=== PATIENT | male | born 1935 | race African-American/Black ===

== ENCOUNTER 2018-03-14 12:25 | Inpatient (IN) | payer MEDICARE, OTHER, MEDICAID ==
[~2018-03-14] VITALS: Ht 180.3 cm; Wt 108.9 kg
[~2018-03-14 12:25] MED LIST: AMLO2.5T45 PO; ASPI-986 PO; ATOR20TA PO; CARV12.545 PO; CLIN300C11 PO; CLOP75TA16 PO; COLC0.6T66 PO; FURO40TA5 PO; GLIM4TAB2 PO; LEVVL SQ; LOSA100T14 PO; OMEP20TA2 PO; SUCR1TAB30 PO
[2018-03-14] MEDS ORDERED: SODIUM CHLORIDE 0.9% 1,000 ML IV ONE (13:42)
[2018-03-14] MEDS ORDERED: ONDANSETRON HCL 4MG/2ML INJ IV STA (13:42)
[2018-03-14 14:56] LABS: CHLORIDE 98 mEq/L (98-107); HEMATOCRIT. 42.1 % (42.0-52.0); HEMOGLOBIN. 14.1 g/dL (14.0-18.0); MEAN CORPUSCULAR HEMOGLOBIN 31.6 pg (28.0-32.0); MEAN CORPUSCULAR VOLUME 94.5 fL (80.0-94.0); MEAN PLATELET VOLUME 9.9 fl (7.4-10.4); PLATELET 141 x1000/uL (130-400); RED BLOOD CELL COUNT 4.46 mill/uL (4.7-6.1); RED CELL DISTRIBUTION WIDTH 14.4 % (11.6-14.6)
[2018-03-14 14:59] LABS: INR 1.2; PARTIAL THROMBOPLASTIN TIME 28.3 sec (23.4-31.0); PROTHROMBIN TIME 12.2 sec (9.1-11.1)
[2018-03-14 15:12] LABS: CLARITY URINE CLEAR (CLEAR); COLOR URINE YELLOW (YELLOW); KETONES URINE 3+ (NEGATIVE); LEUKOCYTE ESTERASE URINE NEGATIVE (NEGATIVE); NITRITE URINE NEGATIVE (NEGATIVE); OCCULT BLOOD URINE NEGATIVE (NEGATIVE); PH URINE >=9.0 (4.5-8.0); PROTEIN URINE 2+ (NEGATIVE); SPECIFIC GRAVITY URINE 1.016 (1.005-1.030)
[2018-03-14 15:35] LABS: PLATELET ESTIMATE NORMAL
[2018-03-14] MEDS ORDERED: ONDANSETRON HCL 4MG/2ML INJ IV SCH (16:30)
[2018-03-14] MEDS ORDERED: LORAZEPAM 2MG/ML CPJ IV SCH (16:30)
[2018-03-14] MEDS ORDERED: METOCLOPRAMIDE HCL 10MG/2ML VIAL IV SCH (16:30)
[2018-03-14] MEDS ORDERED: ACETAMINOPHEN 650MG SUPP PR PRN (19:00)
[2018-03-14] MEDS ORDERED: HYDROMORPHONE HCL/PF 2MG/ML CPJ IV PRN (19:00)
[2018-03-14] MEDS ORDERED: ONDANSETRON HCL 4MG/2ML INJ IV PRN (19:00)
[2018-03-14] MEDS ORDERED: PANTOPRAZOLE 80 MG in SODIUM CHLORIDE 0.9% 100 ML IV SCH (19:00)
[2018-03-14] MEDS ORDERED: OCTREOTIDE 1,000 MCG in SODIUM CHLORIDE 0.9% 100 ML IV SCH ×2 (19:00→20:30)
[2018-03-14] MEDS: PANTOPRAZOLE 80 MG in SODIUM CHLORIDE 0.9% 100 ML IV SCH (21:06)
[2018-03-14] MEDS: DEXT 5%/0.45% NACL 1000ML 1,000 ML IV SCH (22:00)
[2018-03-15] MEDS ORDERED: DEXTROSE 50% WATER 50ML SYRINGE IV PRN (02:30)
[2018-03-15] MEDS ORDERED: INSULIN LISPRO 100 UNITS/ML SUBCUT NR (03:30)
[2018-03-15 06:48] LABS: BASOPHILS % 0.4 % (0.0-2.0); HEMATOCRIT. 39.2 % (42.0-52.0); HEMOGLOBIN. 13.1 g/dL (14.0-18.0); LYMPHOCYTES % 12.3 % (20.0-50.0); MEAN CORPUSCULAR HEMOGLOBIN 31.6 pg (28.0-32.0); MEAN CORPUSCULAR VOLUME 94.6 fL (80.0-94.0); MONOCYTES % 13.3 % (2.0-8.0); PLATELET 125 x1000/uL (130-400); RED BLOOD CELL COUNT 4.14 mill/uL (4.7-6.1); RED CELL DISTRIBUTION WIDTH 14.8 % (11.6-14.6)
[2018-03-15 06:59] LABS: CHLORIDE 102 mEq/L (98-107)
[2018-03-15] MEDS ORDERED: HYDRALAZINE 20MG/ML VIAL IV ONE (08:15)
[2018-03-15] MEDS ORDERED: INSULIN LISPRO 100 UNITS/ML SUBCUT SCH (08:20)
[2018-03-15] MEDS: PANTOPRAZOLE 80 MG in SODIUM CHLORIDE 0.9% 100 ML IV SCH (09:00)
[2018-03-15 09:50] VITALS: BP 184/96
[2018-03-15] MEDS: BLOOD SUGAR DIAGNOSTIC STRIP TEST SCH ×3 (12:30→20:51)
[2018-03-15] MEDS ORDERED: HYDRALAZINE 20MG/ML VIAL IV NR (13:15)
[2018-03-15] MEDS: DEXT 5%/0.45% NACL 1000ML 1,000 ML IV SCH (13:45)
[2018-03-15] MEDS: INSULIN LISPRO 100 UNITS/ML SUBCUT SCH ×2 (18:48→21:52)
[2018-03-15] MEDS: METOCLOPRAMIDE HCL 10MG/2ML VIAL IV SCH (18:53)
[2018-03-15] MEDS: GUAIFENESIN 200MG/10ML SUGAR FREE UDC PO PRN ×2 (18:54→23:20)
[2018-03-15 20:00] VITALS: BP 174/86
[2018-03-15] MEDS: METOPROLOL TARTRATE 25MG TABLET PO SCH (20:51)
[2018-03-15] MEDS ORDERED: VANCOMYCIN 1500MG in DEXTROSE 5% WATER 250ML IV NR (21:00)
[2018-03-15] MEDS: NITROGLYCERIN OINT 1GM/INCH UDPKT TD SCH (21:50)
[2018-03-15 22:00] VITALS: BP 177/79
[2018-03-16] VITALS (12 sets, daily range): BP systolic 160–194; BP diastolic 70–97
[2018-03-16] MEDS: METOCLOPRAMIDE HCL 10MG/2ML VIAL IV SCH ×5 (00:39→23:46)
[2018-03-16] MEDS: NITROGLYCERIN OINT 1GM/INCH UDPKT TD SCH ×3 (05:27→22:18)
[2018-03-16 05:38] LABS: HEMATOCRIT 38.5 % (42.0-52.0); HEMOGLOBIN 12.5 g/dL (14.0-18.0); MEAN CORPUSCULAR VOLUME 95.6 fL (80.0-94.0); PLATELET 126 x1000/uL (130-400); RED BLOOD CELL COUNT 4.03 mill/uL (4.7-6.1); RED CELL DISTRIBUTION WIDTH 15.1 % (11.6-14.6)
[2018-03-16 06:31] LABS: CHLORIDE 104 mEq/L (98-107)
[2018-03-16 06:45] LABS: LDL CHOLESTEROL 38 mg/dL (5-100)
[2018-03-16 06:47] LABS: HDL CHOLESTEROL 42 mg/dL (40-59)
[2018-03-16] MEDS: INSULIN LISPRO 100 UNITS/ML SUBCUT SCH ×4 (08:00→22:11)
[2018-03-16] MEDS: BLOOD SUGAR DIAGNOSTIC STRIP TEST SCH ×4 (08:04→21:12)
[2018-03-16] MEDS: VANCOMYCIN 750 MG PREMIX 150 ML IV SCH ×2 (10:27→21:11)
[2018-03-16] MEDS: PANTOPRAZOLE SODIUM 40 MG/VIAL IV SCH ×2 (10:28→17:26)
[2018-03-16] MEDS: METOPROLOL TARTRATE 25MG TABLET PO SCH (10:28)
[2018-03-16] MEDS: GUAIFENESIN 200MG/10ML SUGAR FREE UDC PO PRN (10:28)
[2018-03-16] MEDS ORDERED: HYDRALAZINE 20MG/ML VIAL IV PRN (11:00)
[2018-03-16] MEDS ORDERED: POTASSIUM CHLORIDE 20MEQ TABLET SR PO NR (11:00)
[2018-03-16 13:19] LABS: HEMATOCRIT 42.4 % (42.0-52.0); HEMOGLOBIN 14.1 g/dL (14.0-18.0)
[2018-03-16 15:50] LABS: *AMPHETAMINES SCREEN URINE NEGATIVE (NEGATIVE); *COCAINE SCREEN URINE NEGATIVE (NEGATIVE); CANNABINOID URINE SCREEN NEGATIVE (NEGATIVE); METHADONE URINE SCREEN NEGATIVE (NEGATIVE); OPIATES URINE SCREEN NEGATIVE (NEGATIVE); PHENCYCLIDINE URINE SCREEN NEGATIVE (NEGATIVE)
[2018-03-16 15:51] LABS: *BARBITURATES SCREEN URINE NEGATIVE (NEGATIVE); *BENZODIAZEPINES SCREEN URINE NEGATIVE (NEGATIVE)
[2018-03-16] MEDS ORDERED: METOPROLOL TARTRATE 25MG TABLET PO ONE (17:30)
[2018-03-16] MEDS ORDERED: CLONIDINE 0.1MG TABLET PO NR (17:40)
[2018-03-16] MEDS ORDERED: MEDICATION NOT ON FORMULARY EA (Furosemide 40 MG) PO SCH (18:15)
[2018-03-16] MEDS ORDERED: MEDICATION NOT ON FORMULARY EA (Aspirin 325 MG) PO SCH (18:15)
[2018-03-16] MEDS ORDERED: ATORVASTATIN CALCIUM 20MG TABLET PO SCH (21:00)
[2018-03-16] MEDS ORDERED: SUCRALFATE PO SCH (21:00)
[2018-03-16] MEDS: SUCRALFATE 1G TABLET PO SCH (21:11)
[2018-03-16] MEDS: METOPROLOL TARTRATE 50MG TABLET PO SCH (21:12)
[2018-03-17] VITALS (9 sets, daily range): BP systolic 152–185; BP diastolic 58–88
[2018-03-17] MEDS: METOCLOPRAMIDE HCL 10MG/2ML VIAL IV SCH ×2 (05:55→12:27)
[2018-03-17] MEDS: NITROGLYCERIN OINT 1GM/INCH UDPKT TD SCH ×2 (05:56→13:23)
[2018-03-17] MEDS: INSULIN LISPRO 100 UNITS/ML SUBCUT SCH ×2 (08:00→12:28)
[2018-03-17] MEDS: BLOOD SUGAR DIAGNOSTIC STRIP TEST SCH ×2 (08:14→11:38)
[2018-03-17] MEDS: PANTOPRAZOLE SODIUM 40 MG/VIAL IV SCH (08:48)
[2018-03-17] MEDS: SUCRALFATE 1G TABLET PO SCH ×2 (08:48→12:27)
[2018-03-17] MEDS: METOPROLOL TARTRATE 50MG TABLET PO SCH (08:49)
[2018-03-17] MEDS: VANCOMYCIN 750 MG PREMIX 150 ML IV SCH (08:54)
[2018-03-17] MEDS ORDERED: COLCHICINE 0.6MG TABLET PO SCH (09:00)
[2018-03-17] MEDS ORDERED: MEDICATION NOT ON FORMULARY EA (Losartan Potassium 1 TAB) PO SCH (09:00)
[2018-03-17] MEDS ORDERED: FUROSEMIDE 40MG TABLET PO SCH (09:00)
[2018-03-17] MEDS ORDERED: ASPIRIN 325MG TABLET PO SCH (09:00)
[2018-03-17] MEDS ORDERED: AMLODIPINE BESYLATE PO SCH (09:00)
[2018-03-17] MEDS ORDERED: MEDICATION NOT ON FORMULARY EA (Clopidogrel Bisulfate (Plavix) 75 MG) PO SCH (09:00)
[2018-03-17] MEDS ORDERED: LOSARTAN POTASSIUM 100 MG TABLET PO SCH (09:00)
[2018-03-17] MEDS ORDERED: CLOPIDOGREL 75MG TABLET PO SCH (09:00)
[2018-03-17] MEDS ORDERED: AMLODIPINE 2.5MG TABLET PO SCH (09:00)
[2018-03-17 09:35] LABS: CHLORIDE 102 mEq/L (98-107)
[2018-03-17] MEDS ORDERED: AMLODIPINE 2.5MG TABLET PO NR (10:45)
[2018-03-17] MEDS ORDERED: HYDRALAZINE HCL 50MG TABLET PO SCH ×2 (14:00)
[2018-03-17] MEDS ORDERED: LACTULOSE 20G/30ML UDC PO NR (14:15)
[2018-03-17] MEDS ORDERED: CLONIDINE 0.1MG TABLET PO NR (14:15)
[2018-03-18] MEDS ORDERED: AMLODIPINE 5MG TABLET PO SCH (09:00)
== END 2018-03-17 16:17 | disposition home or self-care (01) | DRG 871 ==
LOC: ER 14:42 → EDBEDREQTM 18:58 → EDBEDREQ 18:58 → CANRESERV 03-15 07:32 → ENRESERV 03-15 07:32 → EDBEDREQSVC 03-15 07:42 → ENRESERV 03-15 07:55 → 5EST 03-15 09:32
PROVIDERS: ADMIT Internal Medicine; ATTEND Internal Medicine
DX: A41.9 Sepsis, unspecified organism (principal); K22.6 Gastro-esophageal laceration-hemorrhage syndrome; K29.71 Gastritis, unspecified, with bleeding; E78.00 Pure hypercholesterolemia, unspecified; E11.65 Type 2 diabetes mellitus with hyperglycemia; E87.6 Hypokalemia; E78.5 Hyperlipidemia, unspecified; E88.09 Other disorders of plasma-protein metabolism, not elsewhere classified; I25.10 Atherosclerotic heart disease of native coronary artery without angina pectoris; I50.9 Heart failure, unspecified; I11.0 Hypertensive heart disease with heart failure; L98.499 Non-pressure chronic ulcer of skin of other sites with unspecified severity; E11.622 Type 2 diabetes mellitus with other skin ulcer; Z95.5 Presence of coronary angioplasty implant and graft; Z95.0 Presence of cardiac pacemaker; Z79.02 Long term (current) use of antithrombotics/antiplatelets; Z79.4 Long term (current) use of insulin; Z79.82 Long term (current) use of aspirin; Z79.899 Other long term (current) drug therapy; Z88.0 Allergy status to penicillin; Z87.891 Personal history of nicotine dependence; Z87.19 Personal history of other diseases of the digestive system
CPT/HCPCS: 36415; 71045; 74176; 80048; 80061; 80202; 80305; 82270; 82962; 83036; 83605; 83880; 84443; 84484; 84550; 85014; 85018; 85027; 87070; 87077; 87186; 93005; 93306; 93970; 96374; 99285; C9113; J0360; J1815; J2060; J2354; J2405; J2765; J3370; J7030; J7050; J7060

== ENCOUNTER 2018-03-24 07:39 | Inpatient (IN) | payer OTHER, MEDICARE ==
[~2018-03-24] VITALS: Ht 180.3 cm; Wt 104.3 kg
[~2018-03-24 07:39] MED LIST changes: -CARV12.545 PO; -LEVVL SQ; -OMEP20TA2 PO
[2018-03-24] MEDS ORDERED: ONDANSETRON HCL 4MG/2ML INJ IV STA (10:07)
[2018-03-24] MEDS ORDERED: PANTOPRAZOLE SODIUM 40 MG/VIAL IV STA (10:07)
[2018-03-24] MEDS ORDERED: SODIUM CHLORIDE 0.9% 500 ML IV ONE (10:07)
[2018-03-24 10:23] LABS: HEMATOCRIT. 40.2 % (42.0-52.0); HEMOGLOBIN. 13.2 g/dL (14.0-18.0); MEAN CORPUSCULAR HEMOGLOBIN 31.1 pg (28.0-32.0); MEAN CORPUSCULAR VOLUME 94.7 fL (80.0-94.0); MEAN PLATELET VOLUME 9.8 fl (7.4-10.4); PLATELET 195 x1000/uL (130-400); RED BLOOD CELL COUNT 4.25 mill/uL (4.7-6.1); RED CELL DISTRIBUTION WIDTH 14.8 % (11.6-14.6)
[2018-03-24 10:30] LABS: CHLORIDE 97 mEq/L (98-107)
[2018-03-24 10:31] LABS: INR 1.4; PROTHROMBIN TIME 13.7 sec (9.1-11.1)
[2018-03-24 10:37] LABS: PLATELET ESTIMATE NORMAL
[2018-03-24] MEDS ORDERED: AMIODARONE HCL 150 MG in DEXT 5% WATER 100 ML IV ONE (11:15)
[2018-03-24] MEDS ORDERED: POTASSIUM CHLORIDE INJ 40 MEQ in DEXT 5% WATER 250 ML IV ONE (12:00)
[2018-03-24] MEDS ORDERED: ACETAMINOPHEN 650MG SUPP PR PRN (14:00)
[2018-03-24] MEDS ORDERED: PANTOPRAZOLE SODIUM 40 MG/VIAL IV SCH (14:00)
[2018-03-24] MEDS ORDERED: DEXTROSE 50% WATER 50ML SYRINGE IV PRN (14:00)
[2018-03-24] MEDS ORDERED: DIPHENHYDRAMINE 50MG/ML VIAL IV PRN (14:00)
[2018-03-24] MEDS ORDERED: LORAZEPAM 2MG/ML CPJ IV PRN (14:00)
[2018-03-24] MEDS ORDERED: IPRATROPIUM/ALBUTEROL 0.5-3(2.5)MG/3ML NEB INH PRN (14:00)
[2018-03-24] MEDS ORDERED: ONDANSETRON HCL 4MG/2ML INJ IV ONE (14:30)
[2018-03-24] MEDS ORDERED: DILTIAZEM HCL 5MG/ML 5ML VIAL IV PRN (17:15)
[2018-03-24] MEDS ORDERED: POTASSIUM CHLORIDE INJ 30 MEQ in DEXT 5%/0.9% NACL 1,000 ML IV ONE (17:15)
[2018-03-24 18:39] LABS: HEMATOCRIT 37.6 % (42.0-52.0); HEMOGLOBIN 12.4 g/dL (14.0-18.0)
[2018-03-24 18:50] LABS: CREATINE KINASE MB FRACTION 3.7 ng/mL (0.5-3.6)
[2018-03-24] MEDS ORDERED: DILTIAZEM HCL 5MG/ML 5ML VIAL IV NR (20:00)
[2018-03-24] MEDS: IPRATROPIUM/ALBUTEROL 0.5-3(2.5)MG/3ML NEB INH SCH (20:04)
[2018-03-24] MEDS: INSULIN LISPRO 100 UNITS/ML SUBCUT SCH (20:12)
[2018-03-24] MEDS: HYDRALAZINE 20MG/ML VIAL IV PRN (22:01)
[2018-03-24 23:47] LABS: CREATINE KINASE MB FRACTION 4.4 ng/mL (0.5-3.6)
[2018-03-25] VITALS (11 sets, daily range): BP systolic 102–198; BP diastolic 52–112
[2018-03-25 00:50] LABS: HEMATOCRIT 39.2 % (42.0-52.0)
[2018-03-25] MEDS ORDERED: NITROGLYCERIN OINT 1GM/INCH UDPKT TD NR (01:30)
[2018-03-25] MEDS: ONDANSETRON HCL 4MG/2ML INJ IV PRN ×2 (02:42→09:22)
[2018-03-25] MEDS: IPRATROPIUM/ALBUTEROL 0.5-3(2.5)MG/3ML NEB INH SCH ×4 (02:43→20:37)
[2018-03-25] MEDS ORDERED: SODIUM CHLORIDE 0.45% 1,000 ML IV SCH (04:30)
[2018-03-25 04:31] LABS: HEMATOCRIT. 40.9 % (42.0-52.0); HEMOGLOBIN. 13.3 g/dL (14.0-18.0); MEAN CORPUSCULAR HEMOGLOBIN 30.8 pg (28.0-32.0); MEAN PLATELET VOLUME 9.8 fl (7.4-10.4); PLATELET 199 x1000/uL (130-400); RED BLOOD CELL COUNT 4.31 mill/uL (4.7-6.1)
[2018-03-25 04:38] LABS: CHLORIDE 102 mEq/L (98-107)
[2018-03-25 04:45] LABS: LDL CHOLESTEROL 47 mg/dL (5-100)
[2018-03-25 04:46] LABS: HDL CHOLESTEROL 45 mg/dL (40-59)
[2018-03-25] MEDS: HYDRALAZINE 20MG/ML VIAL IV PRN ×2 (05:01→14:39)
[2018-03-25] MEDS: PANTOPRAZOLE SODIUM 40 MG/VIAL IV SCH ×2 (06:34→16:58)
[2018-03-25] MEDS: BLOOD SUGAR DIAGNOSTIC STRIP TEST SCH ×4 (07:30→20:43)
[2018-03-25] MEDS: INSULIN LISPRO 100 UNITS/ML SUBCUT SCH ×4 (08:47→20:46)
[2018-03-25] MEDS ORDERED: HYDRALAZINE 20MG/ML VIAL IV NR (09:09)
[2018-03-25] MEDS ORDERED: NITROGLYCERIN OINT 1GM/INCH UDPKT TD SCH (10:00)
[2018-03-25] MEDS: LEVOFLOXACIN 500MG PREMIX 100 ML IV SCH (10:52)
[2018-03-25] MEDS: METRONIDAZOLE 500 MG PREMIX 100 ML IV SCH ×2 (10:52→18:31)
[2018-03-25 12:10] LABS: HEMATOCRIT 38.4 % (42.0-52.0); HEMOGLOBIN 12.7 g/dL (14.0-18.0)
[2018-03-25] MEDS ORDERED: FUROSEMIDE 100MG/10ML VIAL IVP SCH (13:00)
[2018-03-25 13:07] LABS: PLATELET ESTIMATE NORMAL
[2018-03-25] MEDS: METOCLOPRAMIDE HCL 10MG/2ML VIAL IV SCH ×2 (14:13→18:31)
[2018-03-25] MEDS: CLONIDINE 0.1MG TABLET PO SCH (16:58)
[2018-03-25] MEDS: LOSARTAN POTASSIUM 50 MG TABLET PO SCH (16:58)
[2018-03-25] MEDS: NITROGLYCERIN OINT 1GM/INCH UDPKT TD SCH (18:32)
[2018-03-25 19:37] LABS: HEMATOCRIT 36.8 % (42.0-52.0)
[2018-03-25] MEDS: CARVEDILOL 6.25 MG TABLET PO SCH (20:39)
[2018-03-26] VITALS (35 sets, daily range): BP systolic 128–188; BP diastolic 52–119
[2018-03-26] MEDS: METOCLOPRAMIDE HCL 10MG/2ML VIAL IV SCH ×5 (00:49→23:57)
[2018-03-26] MEDS: NITROGLYCERIN OINT 1GM/INCH UDPKT TD SCH ×5 (00:50→23:57)
[2018-03-26] MEDS: METRONIDAZOLE 500 MG PREMIX 100 ML IV SCH ×3 (00:50→19:24)
[2018-03-26] MEDS: IPRATROPIUM/ALBUTEROL 0.5-3(2.5)MG/3ML NEB INH SCH ×4 (01:57→21:10)
[2018-03-26] MEDS: HYDRALAZINE 20MG/ML VIAL IV PRN (06:23)
[2018-03-26 06:58] LABS: BASOPHILS % 0.1 % (0.0-2.0); EOSINOPHILS % 0.1 % (0.0-5.0); HEMOGLOBIN. 12.5 g/dL (14.0-18.0); LYMPHOCYTES % 15.5 % (20.0-50.0); MEAN CORPUSCULAR HEMOGLOBIN 31.1 pg (28.0-32.0); MONOCYTES % 11.4 % (2.0-8.0); NEUTROPHILS % 72.9 % (40.0-76.0); PLATELET 163 x1000/uL (130-400); RED CELL DISTRIBUTION WIDTH 14.5 % (11.6-14.6)
[2018-03-26] MEDS: BLOOD SUGAR DIAGNOSTIC STRIP TEST SCH ×5 (07:35→21:31)
[2018-03-26 07:58] LABS: CHLORIDE 101 mEq/L (98-107)
[2018-03-26] MEDS: INSULIN LISPRO 100 UNITS/ML SUBCUT SCH ×4 (08:00→21:00)
[2018-03-26] MEDS: PANTOPRAZOLE SODIUM 40 MG/VIAL IV SCH ×2 (08:42→17:26)
[2018-03-26] MEDS: CARVEDILOL 6.25 MG TABLET PO SCH (08:43)
[2018-03-26] MEDS: CLONIDINE 0.1MG TABLET PO SCH ×2 (08:43→17:22)
[2018-03-26] MEDS: LOSARTAN POTASSIUM 50 MG TABLET PO SCH ×2 (08:43→17:56)
[2018-03-26] MEDS ORDERED: FUROSEMIDE 40MG/4ML VIAL IVP SCH (09:00)
[2018-03-26] MEDS ORDERED: KCL 20MEQ/100ML PREMIX 100 ML IV SCH (10:30)
[2018-03-26] MEDS: LEVOFLOXACIN 500MG PREMIX 100 ML IV SCH (10:30)
[2018-03-26] MEDS ORDERED: SIMETHICONE 40 MG/0.6 ML 30ML ONE (11:23)
[2018-03-26] MEDS ORDERED: MAGNESIUM 1 G PREMIX 100 ML IV ONE (12:00)
[2018-03-26] MEDS ORDERED: METOPROLOL TARTRATE 25MG TABLET PO SCH ×2 (12:00→21:00)
[2018-03-26] MEDS ORDERED: MAGNESIUM 2 G PREMIX 50 ML IV NR (12:15)
[2018-03-26] MEDS ORDERED: METOPROLOL TARTRATE 5MG/5ML VIAL IV SCH (13:30)
[2018-03-26 15:18] LABS: CHLORIDE 104 mEq/L (98-107)
[2018-03-26] MEDS ORDERED: POTASSIUM CHLORIDE 20MEQ/PACKET PO NR ×2 (16:45→16:54)
[2018-03-26] MEDS ORDERED: POTASSIUM CHLORIDE 20MEQ/PACKET PO PRN (17:00)
[2018-03-26] MEDS ORDERED: KCL 10MEQ/50ML PREMIX 50 ML IV NR (17:00)
[2018-03-26] MEDS ORDERED: METOPROLOL TARTRATE 5MG/5ML VIAL IV NR (17:00)
[2018-03-26] MEDS ORDERED: MAGNESIUM 1 G PREMIX 100 ML IV NR (17:20)
[2018-03-26] MEDS: METOPROLOL TARTRATE 25MG TABLET PO SCH ×2 (17:23→21:31)
[2018-03-27] VITALS (56 sets, daily range): BP systolic 92–185; BP diastolic 33–105
[2018-03-27] MEDS: METRONIDAZOLE 500 MG PREMIX 100 ML IV SCH ×3 (02:01→17:59)
[2018-03-27] MEDS: IPRATROPIUM/ALBUTEROL 0.5-3(2.5)MG/3ML NEB INH SCH ×2 (02:15→20:50)
[2018-03-27] MEDS: HYDRALAZINE 20MG/ML VIAL IV PRN (03:21)
[2018-03-27 05:36] LABS: BASOPHILS % 0.4 % (0.0-2.0); EOSINOPHILS % 0.2 % (0.0-5.0); HEMATOCRIT. 38.3 % (42.0-52.0); HEMOGLOBIN. 12.5 g/dL (14.0-18.0); LYMPHOCYTES % 17.2 % (20.0-50.0); MEAN CORPUSCULAR HEMOGLOBIN 31.2 pg (28.0-32.0); MEAN CORPUSCULAR VOLUME 95.5 fL (80.0-94.0); MEAN PLATELET VOLUME 10.5 fl (7.4-10.4); MONOCYTES % 9.6 % (2.0-8.0); NEUTROPHILS % 72.6 % (40.0-76.0); PLATELET 161 x1000/uL (130-400); RED BLOOD CELL COUNT 4.01 mill/uL (4.7-6.1); RED CELL DISTRIBUTION WIDTH 14.7 % (11.6-14.6)
[2018-03-27 05:53] LABS: CHLORIDE 101 mEq/L (98-107)
[2018-03-27] MEDS: METOCLOPRAMIDE HCL 10MG/2ML VIAL IV SCH ×3 (06:00→18:00)
[2018-03-27] MEDS: NITROGLYCERIN OINT 1GM/INCH UDPKT TD SCH ×3 (06:40→17:59)
[2018-03-27] MEDS: BLOOD SUGAR DIAGNOSTIC STRIP TEST SCH ×4 (07:50→20:48)
[2018-03-27] MEDS: INSULIN LISPRO 100 UNITS/ML SUBCUT SCH ×4 (08:20→22:13)
[2018-03-27] MEDS: METOPROLOL TARTRATE 25MG TABLET PO SCH ×3 (09:00→22:12)
[2018-03-27] MEDS: LOSARTAN POTASSIUM 50 MG TABLET PO SCH ×2 (09:00→17:58)
[2018-03-27] MEDS: CLONIDINE 0.1MG TABLET PO SCH ×2 (09:00→17:58)
[2018-03-27] MEDS: PANTOPRAZOLE SODIUM 40 MG/VIAL IV SCH ×2 (09:00→17:58)
[2018-03-27] MEDS: LEVOFLOXACIN 500MG PREMIX 100 ML IV SCH (10:41)
[2018-03-27] MEDS: LACTULOSE 20G/30ML UDC PO PRN ×2 (14:51→22:17)
[2018-03-27] MEDS: ASPIRIN 325MG TABLET PO SCH (15:40)
[2018-03-27 16:46] LABS: BG CARBOXYHEMOGLOBIN 0.4 % (0.5-1.5); BG FRACTION INSPIRED OXYGEN 21; BG HCO3 ACT 28.8 mmol/L (22.0-26.0); BG METHEMOGLOBIN 0.3 % (0.0-1.5); BG OXYGEN SATURATION 88.9 % (92.0-98.5); BG OXYHEMOGLOBIN 88.3 % (94.0-97.0); BG PCO2 44.2 mmHg (35.0-45.0); BG PH 7.432 (7.350-7.450); BG PO2 59.5 mmHg (75.0-100.0); BG SAMPLE SITE RIGHT RADIAL; BG TOTAL HEMOGLOBIN 11.8 g/dL (12.0-18.0); BG VENT MODE ROOM AIR
[2018-03-27] MEDS: DOCUSATE SODIUM 100MG CAPSULE PO SCH (17:58)
[2018-03-27] MEDS: BISACODYL 5MG TABLET PO PRN (17:59)
[2018-03-28] VITALS (24 sets, daily range): BP systolic 105–175; BP diastolic 53–96
[2018-03-28] MEDS: METOCLOPRAMIDE HCL 10MG/2ML VIAL IV SCH ×3 (01:13→14:35)
[2018-03-28] MEDS: METRONIDAZOLE 500 MG PREMIX 100 ML IV SCH ×2 (01:13→09:47)
[2018-03-28] MEDS: NITROGLYCERIN OINT 1GM/INCH UDPKT TD SCH ×3 (01:15→14:36)
[2018-03-28] MEDS: IPRATROPIUM/ALBUTEROL 0.5-3(2.5)MG/3ML NEB INH SCH ×3 (03:05→14:23)
[2018-03-28] MEDS: LACTULOSE 20G/30ML UDC PO PRN (05:29)
[2018-03-28] MEDS: BISACODYL 5MG TABLET PO PRN (05:29)
[2018-03-28] MEDS: METOPROLOL TARTRATE 25MG TABLET PO SCH (05:29)
[2018-03-28 05:51] LABS: BASOPHILS % 0.2 % (0.0-2.0); HEMATOCRIT. 35.6 % (42.0-52.0); HEMOGLOBIN. 11.7 g/dL (14.0-18.0); LYMPHOCYTES % 15.6 % (20.0-50.0); MEAN CORPUSCULAR VOLUME 94.4 fL (80.0-94.0); MEAN PLATELET VOLUME 10.3 fl (7.4-10.4); MONOCYTES % 10.7 % (2.0-8.0); NEUTROPHILS % 72.5 % (40.0-76.0); PLATELET 140 x1000/uL (130-400); RED BLOOD CELL COUNT 3.77 mill/uL (4.7-6.1); RED CELL DISTRIBUTION WIDTH 14.3 % (11.6-14.6)
[2018-03-28] MEDS: BLOOD SUGAR DIAGNOSTIC STRIP TEST SCH ×2 (08:17→12:23)
[2018-03-28] MEDS: INSULIN LISPRO 100 UNITS/ML SUBCUT SCH ×2 (08:20→14:36)
[2018-03-28] MEDS: PANTOPRAZOLE SODIUM 40 MG/VIAL IV SCH (08:34)
[2018-03-28] MEDS: ASPIRIN 325MG TABLET PO SCH (08:35)
[2018-03-28] MEDS: LOSARTAN POTASSIUM 50 MG TABLET PO SCH (08:35)
[2018-03-28] MEDS: CLONIDINE 0.1MG TABLET PO SCH (08:35)
[2018-03-28] MEDS: DOCUSATE SODIUM 100MG CAPSULE PO SCH (08:35)
[2018-03-28 08:53] LABS: CHLORIDE 101 mEq/L (98-107)
[2018-03-28 08:59] LABS: PHOSPHORUS 2.7 mg/dL (2.5-4.9)
[2018-03-28] MEDS ORDERED: CLOPIDOGREL 75MG TABLET PO SCH (09:00)
[2018-03-28] MEDS ORDERED: POTASSIUM CHLORIDE 20MEQ/PACKET PO ONE (10:45)
[2018-03-28] MEDS ORDERED: POTASSIUM CHLORIDE 20MEQ TABLET SR PO SCH (10:45)
[2018-03-28] MEDS: LEVOFLOXACIN 500MG PREMIX 100 ML IV SCH (11:23)
[2018-03-28] MEDS ORDERED: SODIUM CHLORIDE 0.9% 500 ML IV ONE (14:30)
[2018-03-28] MEDS ORDERED: METOPROLOL TARTRATE 50MG TABLET PO SCH (17:00)
[2018-04-01] MEDS ORDERED: CLONIDINE HCL 0.2MG/24HR PATCH TD SCH (09:00)
== END 2018-03-28 17:21 | disposition home health service (06) | DRG 377 ==
LOC: ER 07:39 → 5EST 11:40 → EDBEDREQSVC 11:46 → EDBEDREQ 11:46 → EDBEDREQTM 11:46 → ENRESERV 20:32 → CANRESERV 20:32 → EDBEDREQSVC 21:23 → ENRESERV 03-25 02:27 → CVICU 03-26 12:30
PROVIDERS: ADMIT Internal Medicine; ATTEND Internal Medicine
PROC: 0DB98ZX Excision of Duodenum, Via Natural or Artificial Opening Endoscopic, Diagnostic (ICD-10-PCS; principal; 2018-03-26)
DX: K29.01 Acute gastritis with bleeding (principal); J18.9 Pneumonia, unspecified organism; I47.2 Ventricular tachycardia; K22.6 Gastro-esophageal laceration-hemorrhage syndrome; K29.81 Duodenitis with bleeding; K20.8 Other esophagitis; K29.80 Duodenitis without bleeding; I11.0 Hypertensive heart disease with heart failure; E87.6 Hypokalemia; E11.621 Type 2 diabetes mellitus with foot ulcer; I50.9 Heart failure, unspecified; E11.622 Type 2 diabetes mellitus with other skin ulcer; E78.00 Pure hypercholesterolemia, unspecified; I25.10 Atherosclerotic heart disease of native coronary artery without angina pectoris; E11.36 Type 2 diabetes mellitus with diabetic cataract; K29.60 Other gastritis without bleeding; L97.509 Non-pressure chronic ulcer of other part of unspecified foot with unspecified severity; E78.5 Hyperlipidemia, unspecified; F10.10 Alcohol abuse, uncomplicated; E66.9 Obesity, unspecified; K20.9 Esophagitis, unspecified; I48.0 Paroxysmal atrial fibrillation; K59.00 Constipation, unspecified; Z79.02 Long term (current) use of antithrombotics/antiplatelets; Z87.19 Personal history of other diseases of the digestive system; Z95.0 Presence of cardiac pacemaker; Z95.5 Presence of coronary angioplasty implant and graft; Z88.0 Allergy status to penicillin; Z98.42 Cataract extraction status, left eye; Z98.41 Cataract extraction status, right eye; Z79.4 Long term (current) use of insulin; Z68.32 Body mass index [BMI] 32.0-32.9, adult
CPT/HCPCS: 36415; 36600; 71045; 74018; 80048; 80061; 82270; 82375; 82550; 82553; 82805; 82962; 83735; 83880; 84100; 84132; 84484; 85014; 85018; 86850; 86900; 88305; 93005; 93970; 94640; 96365; 96368; 96375; 97162; 99285; C9113; J0282; J0360; J1815; J1940; J1956; J2060; J2405; J2765; J3475; J3480; J3490; J7030; J7040; J7060; J7620

== ENCOUNTER 2018-07-18 09:51 | Inpatient (IN) | payer MEDICARE, MEDICAID, OTHER ==
[~2018-07-18] VITALS: Ht 180.3 cm; Wt 103.9 kg
[~2018-07-18 09:51] MED LIST changes: -CLOP75TA16 PO; +CLOP75TA4 PO; -LOSA100T14 PO; +LOSA100T32 PO
[2018-07-18] MEDS ORDERED: SODIUM CHLORIDE 0.9% 1,000 ML IV ONE (10:25)
[2018-07-18] MEDS ORDERED: FAMOTIDINE 20MG/2ML VIAL IV STA (10:25)
[2018-07-18] MEDS ORDERED: PANTOPRAZOLE 40MG DR TABLET PO ONE (10:30)
[2018-07-18 10:46] LABS: BASOPHILS % 0.5 % (0.0-2.0); EOSINOPHILS % 2.2 % (0.0-5.0); HEMATOCRIT. 36.2 % (42.0-52.0); HEMOGLOBIN. 11.8 g/dL (14.0-18.0); MEAN CORPUSCULAR VOLUME 92.1 fL (80.0-94.0); MEAN PLATELET VOLUME 9.2 fl (7.4-10.4); MONOCYTES % 5.4 % (2.0-8.0); NEUTROPHILS % 80.9 % (40.0-76.0); PLATELET 190 x1000/uL (130-400); RED BLOOD CELL COUNT 3.93 mill/uL (4.7-6.1); RED CELL DISTRIBUTION WIDTH 15.6 % (11.6-14.6)
[2018-07-18 10:51] LABS: CHLORIDE 102 mEq/L (98-107)
[2018-07-18 10:57] LABS: INR 1.2; PARTIAL THROMBOPLASTIN TIME 33.1 sec (23.4-31.0); PROTHROMBIN TIME 11.8 sec (9.6-11.0)
[2018-07-18] MEDS ORDERED: HYDRALAZINE HCL 50MG TABLET PO ONE (11:45)
[2018-07-18] MEDS ORDERED: HYDRALAZINE 20MG/ML VIAL IV PRN (14:30)
[2018-07-18] MEDS ORDERED: ONDANSETRON HCL 4MG/2ML INJ IV PRN (15:45)
[2018-07-18 16:26] VITALS: BP 176/71
[2018-07-18 16:30] VITALS: BP 176/71
[2018-07-18] MEDS: LOSARTAN POTASSIUM 50 MG TABLET PO SCH ×2 (17:40→20:41)
[2018-07-18 20:00] VITALS: BP 176/65
[2018-07-18] MEDS: FAMOTIDINE 20MG/2ML VIAL IV SCH (20:41)
[2018-07-18] MEDS: AMLODIPINE 5MG TABLET PO SCH (20:41)
[2018-07-18] MEDS: CYCLOBENZAPRINE 10MG TABLET PO PRN (22:26)
[2018-07-18] MEDS: BLOOD SUGAR DIAGNOSTIC STRIP TEST SCH (22:26)
[2018-07-18 23:51] LABS: HEMATOCRIT 34.6 % (42.0-52.0); HEMOGLOBIN 11.6 g/dL (14.0-18.0)
[2018-07-19] VITALS: BP 163/50
[2018-07-19] MEDS: CLONIDINE 0.1MG TABLET PO PRN (00:27)
[2018-07-19 04:00] VITALS: BP 172/61
[2018-07-19] MEDS: BLOOD SUGAR DIAGNOSTIC STRIP TEST SCH ×4 (05:56→20:37)
[2018-07-19] MEDS ORDERED: DEXTROSE 50% WATER 50ML SYRINGE IV PRN (06:00)
[2018-07-19 06:08] LABS: EOSINOPHILS % 5.2 % (0.0-5.0); HEMATOCRIT. 32.8 % (42.0-52.0); HEMOGLOBIN. 11.1 g/dL (14.0-18.0); MEAN CORPUSCULAR HEMOGLOBIN 30.9 pg (28.0-32.0); MEAN CORPUSCULAR VOLUME 91.5 fL (80.0-94.0); MEAN PLATELET VOLUME 9.9 fl (7.4-10.4); NEUTROPHILS % 59.8 % (40.0-76.0); PLATELET 177 x1000/uL (130-400); RED BLOOD CELL COUNT 3.59 mill/uL (4.7-6.1); RED CELL DISTRIBUTION WIDTH 15.3 % (11.6-14.6)
[2018-07-19 06:21] LABS: CHLORIDE 106 mEq/L (98-107)
[2018-07-19 06:33] LABS: CREATINE KINASE 178 IU/L (39-308)
[2018-07-19 06:36] LABS: CREATINE KINASE MB FRACTION 2.2 ng/mL (0.5-3.6)
[2018-07-19 08:00] VITALS: BP 173/52
[2018-07-19] MEDS: FAMOTIDINE 20MG/2ML VIAL IV SCH (08:08)
[2018-07-19] MEDS: LOSARTAN POTASSIUM 50 MG TABLET PO SCH ×2 (08:09→20:36)
[2018-07-19] MEDS: AMLODIPINE 5MG TABLET PO SCH ×2 (08:09→20:36)
[2018-07-19] MEDS: CLONIDINE 0.2MG TABLET PO SCH ×2 (10:36→17:56)
[2018-07-19] MEDS ORDERED: MAGNESIUM 1 G PREMIX 100 ML IV NR (11:30)
[2018-07-19] MEDS ORDERED: SIMETHICONE 40 MG/0.6 ML 30ML ONE (11:58)
[2018-07-19 12:00] VITALS: BP 175/74
[2018-07-19] MEDS ORDERED: FENTANYL CITRATE/PF 50MCG/ML 2ML VIAL ONE (12:12)
[2018-07-19] MEDS ORDERED: MIDAZOLAM HCL 5 MG/5 ML VIAL ONE (12:12)
[2018-07-19] MEDS ORDERED: FENTANYL CITRATE/PF 50MCG/ML 2ML VIAL IV PRN (12:13)
[2018-07-19] MEDS ORDERED: MIDAZOLAM HCL 5 MG/5 ML VIAL IV PRN (12:14)
[2018-07-19] MEDS ORDERED: OMEPRAZOLE 20MG CAPSULE EXTENDED RELEASE PO NR (12:45)
[2018-07-19] MEDS ORDERED: BACTERIOSTATIC SODIUM CHLORIDE 0.9% 30ML VIAL IJ ONE (13:53)
[2018-07-19 15:47] LABS: HEMATOCRIT 37.8 % (42.0-52.0); HEMOGLOBIN 12.3 g/dL (14.0-18.0)
[2018-07-19 16:00] VITALS: BP 176/68
[2018-07-19 20:00] VITALS: BP 166/70
[2018-07-19 23:22] LABS: HEMATOCRIT 34.6 % (42.0-52.0); HEMOGLOBIN 11.6 g/dL (14.0-18.0)
[2018-07-20] VITALS (7 sets, daily range): BP systolic 144–185; BP diastolic 51–90
[2018-07-20] MEDS: CYCLOBENZAPRINE 10MG TABLET PO PRN ×2 (03:13→11:43)
[2018-07-20] MEDS: BLOOD SUGAR DIAGNOSTIC STRIP TEST SCH ×4 (05:55→21:27)
[2018-07-20] MEDS: OMEPRAZOLE 20MG CAPSULE EXTENDED RELEASE PO SCH (05:59)
[2018-07-20 06:37] LABS: BASOPHILS % 0.4 % (0.0-2.0); EOSINOPHILS % 0.2 % (0.0-5.0); HEMATOCRIT. 36.8 % (42.0-52.0); HEMOGLOBIN. 12.2 g/dL (14.0-18.0); LYMPHOCYTES % 9.3 % (20.0-50.0); MEAN CORPUSCULAR HEMOGLOBIN 30.3 pg (28.0-32.0); MEAN CORPUSCULAR VOLUME 91.7 fL (80.0-94.0); MEAN PLATELET VOLUME 9.7 fl (7.4-10.4); MONOCYTES % 9.5 % (2.0-8.0); NEUTROPHILS % 80.6 % (40.0-76.0); PLATELET 185 x1000/uL (130-400); RED BLOOD CELL COUNT 4.02 mill/uL (4.7-6.1); RED CELL DISTRIBUTION WIDTH 15.4 % (11.6-14.6)
[2018-07-20 06:47] LABS: CHLORIDE 101 mEq/L (98-107)
[2018-07-20] MEDS: CLONIDINE 0.2MG TABLET PO SCH ×2 (08:46→18:13)
[2018-07-20] MEDS: LOSARTAN POTASSIUM 50 MG TABLET PO SCH ×2 (08:46→22:05)
[2018-07-20] MEDS: AMLODIPINE 5MG TABLET PO SCH ×2 (08:46→22:05)
[2018-07-20] MEDS ORDERED: DEXTROSE 50% WATER 50ML SYRINGE IV PRN (18:15)
[2018-07-20] MEDS ORDERED: BLOOD SUGAR DIAGNOSTIC STRIP TEST SCH (21:00)
[2018-07-20] MEDS ORDERED: ATORVASTATIN CALCIUM 40MG TABLET PO SCH (21:00)
[2018-07-20] MEDS ORDERED: DIPHENHYDRAMINE 25MG CAPSULE PO PRN ×2 (21:45→22:00)
[2018-07-20] MEDS: METOPROLOL TARTRATE 50MG TABLET PO SCH (22:11)
[2018-07-20] MEDS: INSULIN LISPRO 100 UNITS/ML SUBCUT SCH (22:19)
[2018-07-21] VITALS: BP 160/80
[2018-07-21 04:00] VITALS: BP 179/71
[2018-07-21] MEDS: CLONIDINE 0.1MG TABLET PO PRN (06:08)
[2018-07-21] MEDS: OMEPRAZOLE 20MG CAPSULE EXTENDED RELEASE PO SCH (06:15)
[2018-07-21] MEDS: BLOOD SUGAR DIAGNOSTIC STRIP TEST SCH ×2 (06:17→12:58)
[2018-07-21] MEDS: INSULIN LISPRO 100 UNITS/ML SUBCUT SCH ×2 (06:37→12:57)
[2018-07-21 07:41] LABS: BASOPHILS % 0.3 % (0.0-2.0); EOSINOPHILS % 0.1 % (0.0-5.0); HEMATOCRIT. 34.5 % (42.0-52.0); HEMOGLOBIN. 11.7 g/dL (14.0-18.0); LYMPHOCYTES % 11.1 % (20.0-50.0); MEAN CORPUSCULAR HEMOGLOBIN 30.8 pg (28.0-32.0); MEAN CORPUSCULAR VOLUME 91.1 fL (80.0-94.0); MEAN PLATELET VOLUME 9.7 fl (7.4-10.4); MONOCYTES % 14.3 % (2.0-8.0); NEUTROPHILS % 74.2 % (40.0-76.0); PLATELET 161 x1000/uL (130-400); RED BLOOD CELL COUNT 3.79 mill/uL (4.7-6.1)
[2018-07-21 08:00] VITALS: BP 143/66
[2018-07-21 08:57] LABS: CHLORIDE 99 mEq/L (98-107)
[2018-07-21] MEDS: AMLODIPINE 5MG TABLET PO SCH (09:16)
[2018-07-21] MEDS: LOSARTAN POTASSIUM 50 MG TABLET PO SCH (09:17)
[2018-07-21] MEDS: METOPROLOL TARTRATE 50MG TABLET PO SCH (09:17)
[2018-07-21] MEDS: CLONIDINE 0.2MG TABLET PO SCH (09:22)
[2018-07-21 12:00] VITALS: BP 134/72
[2018-07-21 16:00] VITALS: BP 107/71
[2018-07-21 17:23] VITALS: BP 134/72
== END 2018-07-21 17:50 | disposition home or self-care (01) | DRG 381 ==
LOC: ER 09:51 → 8WST 12:53 → EDBEDREQ 13:01 → EDBEDREQTM 13:01 → ENRESERV 13:55
PROVIDERS: ADMIT Internal Medicine; ATTEND Internal Medicine
PROC: 0DB38ZX Excision of Lower Esophagus, Via Natural or Artificial Opening Endoscopic, Diagnostic (ICD-10-PCS; principal; 2018-07-19)
PROC: 0DB68ZX Excision of Stomach, Via Natural or Artificial Opening Endoscopic, Diagnostic (ICD-10-PCS; 2018-07-19)
PROC: 0DB28ZX Excision of Middle Esophagus, Via Natural or Artificial Opening Endoscopic, Diagnostic (ICD-10-PCS; 2018-07-19)
DX: K22.11 Ulcer of esophagus with bleeding (principal); L03.115 Cellulitis of right lower limb; I48.92 Unspecified atrial flutter; L97.819 Non-pressure chronic ulcer of other part of right lower leg with unspecified severity; K29.61 Other gastritis with bleeding; E11.51 Type 2 diabetes mellitus with diabetic peripheral angiopathy without gangrene; E78.00 Pure hypercholesterolemia, unspecified; E78.5 Hyperlipidemia, unspecified; I25.10 Atherosclerotic heart disease of native coronary artery without angina pectoris; I49.5 Sick sinus syndrome; M10.9 Gout, unspecified; I50.9 Heart failure, unspecified; I11.0 Hypertensive heart disease with heart failure; I44.60 Unspecified fascicular block; I87.2 Venous insufficiency (chronic) (peripheral); D64.9 Anemia, unspecified; K44.9 Diaphragmatic hernia without obstruction or gangrene; I49.9 Cardiac arrhythmia, unspecified; Z79.82 Long term (current) use of aspirin; Z79.899 Other long term (current) drug therapy; Z79.02 Long term (current) use of antithrombotics/antiplatelets; Z88.0 Allergy status to penicillin; Z95.0 Presence of cardiac pacemaker; Z79.84 Long term (current) use of oral hypoglycemic drugs
CPT/HCPCS: 36415; 71045; 80048; 82550; 82553; 82962; 83735; 84484; 85014; 85018; 85379; 86677; 86850; 86900; 88305; 88312; 88313; 93005; 96374; 96375; 99285; J0360; J1815; J2250; J3010; J3475; J3490; J7030; J7040; Q0163

== ENCOUNTER 2018-09-24 19:55 | Inpatient (IN) | payer MEDICARE, OTHER ==
[~2018-09-24] VITALS: Ht 180.3 cm; Wt 93.4 kg
[~2018-09-24 19:55] MED LIST changes: -ASPI-986 PO; -CLOP75TA4 PO
[2018-09-24] MEDS ORDERED: ONDANSETRON HCL 4MG/2ML INJ IV STA (20:54)
[2018-09-24] MEDS ORDERED: FUROSEMIDE 40MG/4ML VIAL IV ONE (21:00)
[2018-09-24] MEDS ORDERED: ASPIRIN 81MG TABLET PO ONE (21:00)
[2018-09-24 21:21] LABS: HEMATOCRIT. 35.5 % (42.0-52.0); HEMOGLOBIN. 11.4 g/dL (14.0-18.0); MEAN CORPUSCULAR HEMOGLOBIN 28.4 pg (28.0-32.0); MEAN CORPUSCULAR VOLUME 88.4 fL (80.0-94.0); MEAN PLATELET VOLUME 9.8 fl (7.4-10.4); PLATELET 319 x1000/uL (130-400); RED BLOOD CELL COUNT 4.01 mill/uL (4.7-6.1); RED CELL DISTRIBUTION WIDTH 17.2 % (11.6-14.6)
[2018-09-24 21:24] LABS: CHLORIDE 100 mEq/L (98-107)
[2018-09-24 21:25] LABS: INR 1.3; PARTIAL THROMBOPLASTIN TIME 26.4 sec (23.4-31.0); PROTHROMBIN TIME 13.5 sec (9.6-11.0)
[2018-09-24 21:33] LABS: CLARITY URINE CLEAR (CLEAR); COLOR URINE YELLOW (YELLOW); KETONES URINE 2+ (NEGATIVE); LEUKOCYTE ESTERASE URINE NEGATIVE (NEGATIVE); NITRITE URINE NEGATIVE (NEGATIVE); OCCULT BLOOD URINE 1+ (NEGATIVE); PROTEIN URINE 2+ (NEGATIVE); SPECIFIC GRAVITY URINE 1.014 (1.005-1.030)
[2018-09-24] MEDS ORDERED: HYDRALAZINE 20MG/ML VIAL IV ONE (22:30)
[2018-09-24 22:47] LABS: PLATELET ESTIMATE NORMAL
[2018-09-24] MEDS ORDERED: ONDANSETRON HCL 4MG/2ML INJ IV ONE (23:30)
[2018-09-25] VITALS (7 sets, daily range): BP systolic 100–186; BP diastolic 58–87
[2018-09-25] MEDS ORDERED: DILTIAZEM HCL 30MG TABLET PO ONE (01:15)
[2018-09-25] MEDS ORDERED: DILTIAZEM HCL 5MG/ML 5ML VIAL IV ONE (01:15)
[2018-09-25] MEDS ORDERED: CLON0.2T PO (08:27)
[2018-09-25] MEDS ORDERED: ACETAMINOPHEN 325MG TABLET PO PRN (11:30)
[2018-09-25] MEDS ORDERED: DEXTROSE 50% WATER 50ML SYRINGE IV PRN (11:30)
[2018-09-25] MEDS: BLOOD SUGAR DIAGNOSTIC STRIP TEST SCH ×3 (11:45→20:57)
[2018-09-25] MEDS: LOSARTAN POTASSIUM 100 MG TABLET PO SCH ×2 (12:00→13:24)
[2018-09-25] MEDS ORDERED: FUROSEMIDE 40MG TABLET PO SCH (12:00)
[2018-09-25] MEDS: AMLODIPINE 2.5MG TABLET PO SCH ×2 (12:00→13:24)
[2018-09-25] MEDS ORDERED: SUCRALFATE PO SCH (13:00)
[2018-09-25] MEDS: SUCRALFATE 1G TABLET PO SCH ×3 (13:24→20:36)
[2018-09-25] MEDS ORDERED: BISACODYL 10MG SUPP PR NR (13:30)
[2018-09-25] MEDS ORDERED: DEXT 5%/0.45% NACL 500ML 500 ML IV SCH (13:45)
[2018-09-25] MEDS: ONDANSETRON HCL 4MG/2ML INJ IV PRN (13:52)
[2018-09-25] MEDS: DEXT 5%/0.45% NACL 1000ML 1,000 ML IV SCH (14:07)
[2018-09-25] MEDS: HYDRALAZINE 20MG/ML VIAL IV PRN ×2 (14:08→20:53)
[2018-09-25] MEDS: INSULIN LISPRO 100 UNITS/ML SUBCUT SCH ×3 (14:09→21:00)
[2018-09-25] MEDS ORDERED: IOHEXOL-300 100 ML BOTTLE ONE (15:38)
[2018-09-25] MEDS ORDERED: OMEPRAZOLE 20MG CAPSULE EXTENDED RELEASE PO SCH (16:45)
[2018-09-25] MEDS: OMEPRAZOLE 20MG CAPSULE EXTENDED RELEASE PO SCH (16:45)
[2018-09-25] MEDS ORDERED: FUROSEMIDE 40MG/4ML VIAL IVP SCH (18:00)
[2018-09-25 18:18] LABS: HEMOGLOBIN. 11.8 g/dL (14.0-18.0); MEAN CORPUSCULAR HEMOGLOBIN 28.7 pg (28.0-32.0); MEAN CORPUSCULAR VOLUME 87.4 fL (80.0-94.0); MEAN PLATELET VOLUME 9.2 fl (7.4-10.4); PLATELET 313 x1000/uL (130-400); RED BLOOD CELL COUNT 4.12 mill/uL (4.7-6.1); RED CELL DISTRIBUTION WIDTH 17.5 % (11.6-14.6)
[2018-09-25] MEDS: DILTIAZEM HCL 5MG/ML 5ML VIAL IV PRN (18:28)
[2018-09-25 18:33] LABS: CHLORIDE 101 mEq/L (98-107)
[2018-09-25 18:45] LABS: CREATINE KINASE MB FRACTION 2.8 ng/mL (0.5-3.6)
[2018-09-25 18:47] LABS: PHOSPHORUS 2.4 mg/dL (2.5-4.9)
[2018-09-25 18:48] LABS: LDL CHOLESTEROL 68 mg/dL (5-100)
[2018-09-25 18:50] LABS: HDL CHOLESTEROL 45 mg/dL (40-59); TOTAL IRON BINDING CAPACITY 154 ug/dL (250-450)
[2018-09-25 19:24] LABS: PLATELET ESTIMATE NORMAL
[2018-09-25 20:27] LABS: FOLIC ACID (FOLATE) SERUM 10.8 ng/mL (>5.38)
[2018-09-25] MEDS ORDERED: ATORVASTATIN CALCIUM 20MG TABLET PO SCH (21:00)
[2018-09-25 23:12] LABS: CREATINE KINASE MB FRACTION 3.4 ng/mL (0.5-3.6)
[2018-09-26] VITALS (7 sets, daily range): BP systolic 144–190; BP diastolic 58–87
[2018-09-26] MEDS: DILTIAZEM HCL 5MG/ML 5ML VIAL IV PRN ×3 (00:07→18:26)
[2018-09-26] MEDS ORDERED: HYDRALAZINE 20MG/ML VIAL IV NR (01:30)
[2018-09-26] MEDS ORDERED: POTASSIUM CHLORIDE 20MEQ TABLET SR PO ONE (01:30)
[2018-09-26] MEDS ORDERED: KCL 20MEQ/100ML PREMIX 100 ML IV NR (03:00)
[2018-09-26] MEDS: SUCRALFATE 1G TABLET PO SCH ×4 (03:51→21:19)
[2018-09-26] MEDS: OMEPRAZOLE 20MG CAPSULE EXTENDED RELEASE PO SCH ×2 (03:52→16:27)
[2018-09-26] MEDS: HYDRALAZINE 20MG/ML VIAL IV PRN ×2 (05:02→09:13)
[2018-09-26] MEDS: BLOOD SUGAR DIAGNOSTIC STRIP TEST SCH ×4 (06:06→21:17)
[2018-09-26] MEDS: INSULIN LISPRO 100 UNITS/ML SUBCUT SCH ×4 (06:33→21:24)
[2018-09-26] MEDS ORDERED: GLIMEPIRIDE 2MG TABLET PO SCH (07:15)
[2018-09-26] MEDS ORDERED: MEDICATION NOT ON FORMULARY EA (Losartan Potassium 1 TAB) PO SCH (09:00)
[2018-09-26] MEDS ORDERED: GLIMEPIRIDE PO SCH (09:00)
[2018-09-26] MEDS ORDERED: MEDICATION NOT ON FORMULARY EA (Amlodipine Besylate 1 TAB) PO SCH (09:00)
[2018-09-26] MEDS: AMLODIPINE 2.5MG TABLET PO SCH (09:00)
[2018-09-26] MEDS ORDERED: CLINDAMYCIN HCL PO SCH (09:00)
[2018-09-26] MEDS: LOSARTAN POTASSIUM 100 MG TABLET PO SCH (09:00)
[2018-09-26] MEDS ORDERED: MEDICATION NOT ON FORMULARY EA (Furosemide 40 MG) PO SCH (09:00)
[2018-09-26] MEDS: DEXT 5%/0.45% NACL 1000ML 1,000 ML IV SCH (09:13)
[2018-09-26] MEDS ORDERED: DILTIAZEM HCL 5MG/ML 25ML VIAL IV PRN (10:15)
[2018-09-26] MEDS ORDERED: NA PHOS,M-B/NA PHOS,DI-BA ENEMA 118ML PR PRN ×2 (10:15→10:30)
[2018-09-26] MEDS ORDERED: LABETALOL 5MG/ML SYR 20 MG/4 ML SYRINGE IV PRN (10:15)
[2018-09-26] MEDS ORDERED: BISACODYL 10MG SUPP PR PRN (10:30)
[2018-09-26] MEDS ORDERED: POTASSIUM PHOS,M-BASIC-D-BASIC 20 MMOL in DEXT 5% WATER 243.3333 ML IV ONE (11:00)
[2018-09-26 11:36] LABS: HEMOGLOBIN. 11.4 g/dL (14.0-18.0); MEAN CORPUSCULAR HEMOGLOBIN 28.7 pg (28.0-32.0); MEAN CORPUSCULAR VOLUME 88.1 fL (80.0-94.0); MEAN PLATELET VOLUME 9.8 fl (7.4-10.4); PLATELET 276 x1000/uL (130-400); RED BLOOD CELL COUNT 3.98 mill/uL (4.7-6.1)
[2018-09-26] MEDS ORDERED: HYDRALAZINE 20MG/ML VIAL IV SCH ×2 (12:00→15:00)
[2018-09-26 13:08] LABS: CHLORIDE 103 mEq/L (98-107)
[2018-09-26 13:20] LABS: AMYLASE 64 IU/L (25-115)
[2018-09-26 13:44] LABS: PLATELET ESTIMATE NORMAL
[2018-09-26] MEDS: HYDRALAZINE 20MG/ML VIAL IV SCH ×2 (15:14→21:18)
[2018-09-26] MEDS: BISACODYL 10MG SUPP PR PRN (17:41)
[2018-09-26] MEDS ORDERED: MAGNESIUM CITRATE 300ML SOLUTION PO NR (21:00)
[2018-09-26] MEDS: INSULIN GLARGINE UD 100 UNITS/ML SYR SUBCUT SCH (21:19)
[2018-09-26] MEDS: METHYLPREDNISOLONE SOD SUCC 40 MG/ML VIAL IV SCH (21:46)
[2018-09-27] VITALS: BP 160/83
[2018-09-27] MEDS: DILTIAZEM HCL 5MG/ML 5ML VIAL IV PRN (00:53)
[2018-09-27] MEDS: METHYLPREDNISOLONE SOD SUCC 40 MG/ML VIAL IV SCH ×4 (03:47→21:53)
[2018-09-27] MEDS: HYDRALAZINE 20MG/ML VIAL IV SCH ×4 (03:55→21:15)
[2018-09-27 04:00] VITALS: BP 174/73
[2018-09-27] MEDS: SUCRALFATE 1G TABLET PO SCH ×4 (07:12→21:54)
[2018-09-27] MEDS: DEXT 5%/0.45% NACL 1000ML 1,000 ML IV SCH ×2 (07:12→23:17)
[2018-09-27] MEDS: OMEPRAZOLE 20MG CAPSULE EXTENDED RELEASE PO SCH ×2 (07:12→17:40)
[2018-09-27] MEDS: BLOOD SUGAR DIAGNOSTIC STRIP TEST SCH ×4 (07:16→21:56)
[2018-09-27] MEDS: INSULIN LISPRO 100 UNITS/ML SUBCUT SCH ×4 (07:20→21:55)
[2018-09-27 08:00] VITALS: BP 169/66
[2018-09-27] MEDS: AMLODIPINE 2.5MG TABLET PO SCH (09:16)
[2018-09-27] MEDS: LOSARTAN POTASSIUM 100 MG TABLET PO SCH (09:16)
[2018-09-27] MEDS: ONDANSETRON HCL 4MG/2ML INJ IV PRN (09:17)
[2018-09-27] MEDS: BISACODYL 10MG SUPP PR PRN ×2 (10:24→15:19)
[2018-09-27] MEDS ORDERED: CARVEDILOL 6.25 MG TABLET PO NR (10:45)
[2018-09-27] MEDS ORDERED: MAGNESIUM CITRATE 300ML SOLUTION PO SCH (11:00)
[2018-09-27 11:42] LABS: HEMATOCRIT. 35.2 % (42.0-52.0); HEMOGLOBIN. 11.6 g/dL (14.0-18.0); MEAN CORPUSCULAR HEMOGLOBIN 28.7 pg (28.0-32.0); MEAN CORPUSCULAR VOLUME 87.2 fL (80.0-94.0); MEAN PLATELET VOLUME 9.6 fl (7.4-10.4); PLATELET 240 x1000/uL (130-400); RED BLOOD CELL COUNT 4.04 mill/uL (4.7-6.1); RED CELL DISTRIBUTION WIDTH 17.9 % (11.6-14.6)
[2018-09-27 12:00] VITALS: BP 172/54
[2018-09-27 12:05] LABS: CHLORIDE 103 mEq/L (98-107)
[2018-09-27 12:17] LABS: PHOSPHORUS 3.7 mg/dL (2.5-4.9)
[2018-09-27 12:19] LABS: CREATINE KINASE 111 IU/L (39-308)
[2018-09-27 13:30] LABS: PLATELET ESTIMATE NORMAL
[2018-09-27] MEDS ORDERED: KCL 20MEQ/100ML PREMIX 100 ML IV NR (15:00)
[2018-09-27] MEDS: ISOSORB DINIT/HYDRALAZINE HCL 20/37.5MG TABLET PO SCH ×2 (15:24→23:16)
[2018-09-27 16:00] VITALS: BP 140/60
[2018-09-27 20:00] VITALS: BP 131/55
[2018-09-27] MEDS ORDERED: METHYLPREDNISOLONE SOD SUCC 40 MG/ML VIAL IV SCH (21:00)
[2018-09-27] MEDS: CARVEDILOL 6.25 MG TABLET PO SCH (21:54)
[2018-09-27] MEDS: INSULIN GLARGINE UD 100 UNITS/ML SYR SUBCUT SCH (21:56)
[2018-09-28] VITALS: BP 122/63
[2018-09-28] MEDS: METHYLPREDNISOLONE SOD SUCC 40 MG/ML VIAL IV SCH ×4 (03:57→22:36)
[2018-09-28] MEDS: HYDRALAZINE 20MG/ML VIAL IV SCH ×4 (03:58→21:15)
[2018-09-28 04:00] VITALS: BP 163/73
[2018-09-28] MEDS: BLOOD SUGAR DIAGNOSTIC STRIP TEST SCH ×4 (06:49→21:00)
[2018-09-28] MEDS: INSULIN LISPRO 100 UNITS/ML SUBCUT SCH ×3 (06:49→17:04)
[2018-09-28] MEDS: SUCRALFATE 1G TABLET PO SCH ×4 (06:50→22:36)
[2018-09-28] MEDS: OMEPRAZOLE 20MG CAPSULE EXTENDED RELEASE PO SCH ×2 (06:51→16:59)
[2018-09-28] MEDS: ISOSORB DINIT/HYDRALAZINE HCL 20/37.5MG TABLET PO SCH ×3 (06:51→22:00)
[2018-09-28 08:05] LABS: HEMATOCRIT. 35.7 % (42.0-52.0); HEMOGLOBIN. 11.7 g/dL (14.0-18.0); MEAN CORPUSCULAR HEMOGLOBIN 28.7 pg (28.0-32.0); MEAN CORPUSCULAR VOLUME 87.2 fL (80.0-94.0); MEAN PLATELET VOLUME 9.4 fl (7.4-10.4); PLATELET 220 x1000/uL (130-400); RED BLOOD CELL COUNT 4.09 mill/uL (4.7-6.1)
[2018-09-28 08:07] LABS: *CREATININE RANDOM URINE 128.1 mg/dL (Not Estab.); MICROALBUMIN RANDOM URINE 2869.8 ug/mL (Not Estab.)
[2018-09-28 08:21] VITALS: BP 124/61
[2018-09-28 08:35] LABS: CHLORIDE 101 mEq/L (98-107)
[2018-09-28 08:45] LABS: PHOSPHORUS 3.1 mg/dL (2.5-4.9)
[2018-09-28] MEDS: CARVEDILOL 6.25 MG TABLET PO SCH ×2 (08:47→21:00)
[2018-09-28] MEDS: AMLODIPINE 2.5MG TABLET PO SCH (08:47)
[2018-09-28] MEDS: LOSARTAN POTASSIUM 100 MG TABLET PO SCH (08:47)
[2018-09-28] MEDS ORDERED: FUROSEMIDE 40MG TABLET PO SCH (09:00)
[2018-09-28 09:11] LABS: ANTI-DNA DOUBLE STRANDED QUANT < 1 IU/mL (0-9)
[2018-09-28 12:53] VITALS: BP 151/62
[2018-09-28 16:35] VITALS: BP 109/48
[2018-09-28] MEDS ORDERED: INSULIN LISPRO (LOW DOSE) 100 UNITS/ML SUBCUT SCH (19:00)
[2018-09-28] MEDS ORDERED: DEXTROSE 50% WATER 50ML SYRINGE IV PRN (19:00)
[2018-09-28 20:00] VITALS: BP 100/41
[2018-09-28 20:14] LABS: PLATELET ESTIMATE NORMAL
[2018-09-28] MEDS ORDERED: INSULIN LISPRO 100 UNITS/ML SUBCUT NR (21:49)
[2018-09-28] MEDS: INSULIN GLARGINE UD 100 UNITS/ML SYR SUBCUT SCH (22:38)
[2018-09-29 00:41] VITALS: BP 137/48
[2018-09-29] MEDS: HYDRALAZINE 20MG/ML VIAL IV SCH ×2 (03:15→09:14)
[2018-09-29] MEDS: METHYLPREDNISOLONE SOD SUCC 40 MG/ML VIAL IV SCH ×4 (04:08→20:58)
[2018-09-29 04:22] VITALS: BP 136/82
[2018-09-29 05:43] LABS: BASOPHILS % 0.1 % (0.0-2.0); HEMATOCRIT. 35.6 % (42.0-52.0); HEMOGLOBIN. 11.8 g/dL (14.0-18.0); MEAN CORPUSCULAR HEMOGLOBIN 28.8 pg (28.0-32.0); MEAN CORPUSCULAR VOLUME 86.8 fL (80.0-94.0); MEAN PLATELET VOLUME 9.8 fl (7.4-10.4); MONOCYTES % 4.6 % (2.0-8.0); NEUTROPHILS % 86.3 % (40.0-76.0); PLATELET 215 x1000/uL (130-400); RED CELL DISTRIBUTION WIDTH 17.4 % (11.6-14.6)
[2018-09-29] MEDS: SUCRALFATE 1G TABLET PO SCH ×4 (06:31→20:58)
[2018-09-29] MEDS: ISOSORB DINIT/HYDRALAZINE HCL 20/37.5MG TABLET PO SCH ×3 (06:31→22:14)
[2018-09-29] MEDS: BLOOD SUGAR DIAGNOSTIC STRIP TEST SCH ×4 (06:31→20:58)
[2018-09-29] MEDS: OMEPRAZOLE 20MG CAPSULE EXTENDED RELEASE PO SCH ×2 (06:31→17:34)
[2018-09-29] MEDS ORDERED: NON FORMULARY PATIENT HOME MED SUBCUT SCH (06:45)
[2018-09-29] MEDS ORDERED: INSULIN LISPRO 100 UNITS/ML SUBCUT SCH (06:45)
[2018-09-29] MEDS: INSULIN LISPRO (MEDIUM DOSE) 100 UNITS/ML SUBCUT SCH ×3 (06:53→17:46)
[2018-09-29] MEDS: INSULIN LISPRO 100 UNITS/ML SUBCUT SCH ×3 (06:53→17:46)
[2018-09-29 08:00] VITALS: BP 109/51
[2018-09-29] MEDS: AMLODIPINE 2.5MG TABLET PO SCH (09:00)
[2018-09-29] MEDS: CARVEDILOL 6.25 MG TABLET PO SCH ×2 (09:00→20:58)
[2018-09-29] MEDS: LOSARTAN POTASSIUM 100 MG TABLET PO SCH (09:13)
[2018-09-29 09:15] LABS: ALDOLASE 7.8 U/L (3.3-10.3)
[2018-09-29 10:07] LABS: COMPLEMENT C3 140 mg/dL (82-167)
[2018-09-29 12:00] VITALS: BP 103/58
[2018-09-29] MEDS ORDERED: SODIUM CHLORIDE 0.45% 1,000 ML IV SCH (12:00)
[2018-09-29 13:12] LABS: ANA IFA Negative (.)
[2018-09-29 15:06] LABS: ANTI-MYELOPEROXIDASE AB < 9.0 U/mL (0.0-9.0); ANTI-PROTEINASE 3 ABS < 3.5 U/mL (0.0-3.5); ATYPICAL P-ANCA <1:20 titer (Neg:<1:20); CYTOPLASMIC C-ANCA <1:20 titer (Neg:<1:20); PERINUCLEAR P-ANCA <1:20 titer (Neg:<1:20)
[2018-09-29 16:00] VITALS: BP 103/47
[2018-09-29 20:00] VITALS: BP 144/56
[2018-09-29] MEDS: INSULIN GLARGINE UD 100 UNITS/ML SYR SUBCUT SCH (20:59)
[2018-09-29] MEDS: PREDNISONE 20MG TABLET PO SCH (22:14)
[2018-09-30] VITALS: BP 103/45
[2018-09-30 04:00] VITALS: BP 143/56
[2018-09-30] MEDS: BLOOD SUGAR DIAGNOSTIC STRIP TEST SCH ×4 (06:51→21:00)
[2018-09-30] MEDS: OMEPRAZOLE 20MG CAPSULE EXTENDED RELEASE PO SCH ×2 (06:51→18:18)
[2018-09-30] MEDS: ISOSORB DINIT/HYDRALAZINE HCL 20/37.5MG TABLET PO SCH ×3 (06:51→21:38)
[2018-09-30] MEDS: SUCRALFATE 1G TABLET PO SCH ×4 (06:53→21:37)
[2018-09-30] MEDS: INSULIN LISPRO (MEDIUM DOSE) 100 UNITS/ML SUBCUT SCH ×3 (06:57→18:36)
[2018-09-30] MEDS: INSULIN LISPRO 100 UNITS/ML SUBCUT SCH ×3 (06:58→18:36)
[2018-09-30 08:00] VITALS: BP 93/60
[2018-09-30 08:13] LABS: BASOPHILS % 0.1 % (0.0-2.0); HEMATOCRIT. 34.2 % (42.0-52.0); HEMOGLOBIN. 11.7 g/dL (14.0-18.0); LYMPHOCYTES % 8.2 % (20.0-50.0); MEAN CORPUSCULAR HEMOGLOBIN 29.2 pg (28.0-32.0); MEAN CORPUSCULAR VOLUME 85.6 fL (80.0-94.0); MEAN PLATELET VOLUME 9.5 fl (7.4-10.4); MONOCYTES % 4.4 % (2.0-8.0); NEUTROPHILS % 87.3 % (40.0-76.0); PLATELET 172 x1000/uL (130-400); RED BLOOD CELL COUNT 3.99 mill/uL (4.7-6.1); RED CELL DISTRIBUTION WIDTH 17.6 % (11.6-14.6)
[2018-09-30] MEDS: LOSARTAN POTASSIUM 100 MG TABLET PO SCH (09:00)
[2018-09-30] MEDS: AMLODIPINE 2.5MG TABLET PO SCH (09:00)
[2018-09-30] MEDS: CARVEDILOL 6.25 MG TABLET PO SCH (09:00)
[2018-09-30] MEDS: AZATHIOPRINE 50MG TABLET PO SCH ×2 (09:30→18:19)
[2018-09-30] MEDS: PREDNISONE 20MG TABLET PO SCH ×3 (09:30→18:19)
[2018-09-30 12:00] VITALS: BP 144/61
[2018-09-30 16:00] VITALS: BP 132/88
[2018-09-30 20:00] VITALS: BP 129/53
[2018-09-30] MEDS: CARVEDILOL 3.125 MG TABLET PO SCH (21:37)
[2018-09-30] MEDS: INSULIN GLARGINE UD 100 UNITS/ML SYR SUBCUT SCH (22:14)
[2018-10-01] VITALS: BP 110/53
[2018-10-01 04:00] VITALS: BP 153/59
[2018-10-01] MEDS: INSULIN LISPRO 100 UNITS/ML SUBCUT SCH ×3 (06:34→17:01)
[2018-10-01] MEDS: SUCRALFATE 1G TABLET PO SCH ×4 (06:35→21:38)
[2018-10-01] MEDS: ISOSORB DINIT/HYDRALAZINE HCL 20/37.5MG TABLET PO SCH ×3 (06:35→21:38)
[2018-10-01] MEDS: BLOOD SUGAR DIAGNOSTIC STRIP TEST SCH ×4 (06:35→20:49)
[2018-10-01] MEDS: OMEPRAZOLE 20MG CAPSULE EXTENDED RELEASE PO SCH ×2 (06:35→16:59)
[2018-10-01] MEDS: INSULIN LISPRO (MEDIUM DOSE) 100 UNITS/ML SUBCUT SCH ×3 (06:36→17:02)
[2018-10-01 08:00] VITALS: BP 102/50
[2018-10-01 08:16] LABS: HEMATOCRIT. 35.8 % (42.0-52.0); HEMOGLOBIN. 12.2 g/dL (14.0-18.0); MEAN CORPUSCULAR HEMOGLOBIN 29.3 pg (28.0-32.0); MEAN CORPUSCULAR VOLUME 85.8 fL (80.0-94.0); MEAN PLATELET VOLUME 9.8 fl (7.4-10.4); PLATELET 169 x1000/uL (130-400); RED BLOOD CELL COUNT 4.17 mill/uL (4.7-6.1); RED CELL DISTRIBUTION WIDTH 17.7 % (11.6-14.6)
[2018-10-01] MEDS: CARVEDILOL 3.125 MG TABLET PO SCH ×2 (08:44→21:38)
[2018-10-01] MEDS: AMLODIPINE 2.5MG TABLET PO SCH (08:44)
[2018-10-01] MEDS: AZATHIOPRINE 50MG TABLET PO SCH ×2 (08:45→17:06)
[2018-10-01] MEDS: LOSARTAN POTASSIUM 25 MG TABLET PO SCH (08:45)
[2018-10-01] MEDS: PREDNISONE 20MG TABLET PO SCH ×2 (08:45→17:06)
[2018-10-01 08:49] LABS: CHLORIDE 94 mEq/L (98-107)
[2018-10-01 09:07] LABS: PHOSPHORUS 4.7 mg/dL (2.5-4.9)
[2018-10-01 09:34] LABS: CLARITY URINE CLEAR (CLEAR); COLOR URINE YELLOW (YELLOW); KETONES URINE NEGATIVE (NEGATIVE); LEUKOCYTE ESTERASE URINE NEGATIVE (NEGATIVE); NITRITE URINE NEGATIVE (NEGATIVE); OCCULT BLOOD URINE NEGATIVE (NEGATIVE); PROTEIN URINE NEGATIVE (NEGATIVE); SPECIFIC GRAVITY URINE 1.008 (1.005-1.030); UROBILINOGEN URINE 0.2 E.U./dL (0.2-1.0)
[2018-10-01 10:51] LABS: PLATELET ESTIMATE NORMAL
[2018-10-01 12:00] VITALS: BP 136/57
[2018-10-01 16:00] VITALS: BP 118/51
[2018-10-01 20:00] VITALS: BP 151/57
[2018-10-01] MEDS: INSULIN GLARGINE UD 100 UNITS/ML SYR SUBCUT SCH (21:39)
[2018-10-02] VITALS: BP 131/53
[2018-10-02 04:00] VITALS: BP 105/69
[2018-10-02] MEDS: OMEPRAZOLE 20MG CAPSULE EXTENDED RELEASE PO SCH ×2 (06:20→16:50)
[2018-10-02] MEDS: ISOSORB DINIT/HYDRALAZINE HCL 20/37.5MG TABLET PO SCH ×2 (06:20→14:03)
[2018-10-02] MEDS: SUCRALFATE 1G TABLET PO SCH ×3 (06:20→16:50)
[2018-10-02] MEDS: BLOOD SUGAR DIAGNOSTIC STRIP TEST SCH ×3 (06:21→16:50)
[2018-10-02] MEDS: INSULIN LISPRO (MEDIUM DOSE) 100 UNITS/ML SUBCUT SCH ×3 (06:32→16:52)
[2018-10-02] MEDS: INSULIN LISPRO 100 UNITS/ML SUBCUT SCH ×3 (07:53→16:52)
[2018-10-02 08:00] VITALS: BP 126/64
[2018-10-02] MEDS: AZATHIOPRINE 50MG TABLET PO SCH ×2 (09:11→16:50)
[2018-10-02] MEDS: PREDNISONE 20MG TABLET PO SCH ×2 (09:11→16:50)
[2018-10-02] MEDS: LOSARTAN POTASSIUM 25 MG TABLET PO SCH (09:15)
[2018-10-02] MEDS: CARVEDILOL 3.125 MG TABLET PO SCH (09:15)
[2018-10-02 12:00] VITALS: BP 140/89
[2018-10-02 15:42] VITALS: BP 140/89
[2018-10-02 16:00] VITALS: BP 145/73
[2018-10-03] MEDS ORDERED: PREDNISONE 20MG TABLET PO SCH (09:00)
== END 2018-10-02 18:25 | disposition home or self-care (01) | DRG 545 ==
LOC: ER 21:21 → 5WST 09-25 00:04 → EDBEDREQTM 09-25 00:07 → EDBEDREQ 09-25 00:07 → EDBEDREQDT 09-25 00:07 → ENRESERV 09-25 05:10
PROVIDERS: ADMIT Internal Medicine; ATTEND Internal Medicine
DX: M35.3 Polymyalgia rheumatica (principal); E43 Unspecified severe protein-calorie malnutrition; K86.1 Other chronic pancreatitis; L97.919 Non-pressure chronic ulcer of unspecified part of right lower leg with unspecified severity; M33.13 Other dermatomyositis without myopathy; I50.42 Chronic combined systolic (congestive) and diastolic (congestive) heart failure; N17.9 Acute kidney failure, unspecified; I42.0 Dilated cardiomyopathy; L03.115 Cellulitis of right lower limb; L03.116 Cellulitis of left lower limb; D50.9 Iron deficiency anemia, unspecified; E11.319 Type 2 diabetes mellitus with unspecified diabetic retinopathy without macular edema; E11.42 Type 2 diabetes mellitus with diabetic polyneuropathy; E11.51 Type 2 diabetes mellitus with diabetic peripheral angiopathy without gangrene; E11.65 Type 2 diabetes mellitus with hyperglycemia; F17.210 Nicotine dependence, cigarettes, uncomplicated; I11.0 Hypertensive heart disease with heart failure; I25.10 Atherosclerotic heart disease of native coronary artery without angina pectoris; I48.91 Unspecified atrial fibrillation; K56.41 Fecal impaction; M06.9 Rheumatoid arthritis, unspecified; R09.02 Hypoxemia; Z89.412 Acquired absence of left great toe; Z95.5 Presence of coronary angioplasty implant and graft; I25.5 Ischemic cardiomyopathy; E87.6 Hypokalemia; I95.1 Orthostatic hypotension; Z88.0 Allergy status to penicillin; E78.5 Hyperlipidemia, unspecified; J44.9 Chronic obstructive pulmonary disease, unspecified; I49.5 Sick sinus syndrome; I16.0 Hypertensive urgency; E78.00 Pure hypercholesterolemia, unspecified; K57.90 Diverticulosis of intestine, part unspecified, without perforation or abscess without bleeding; Z79.4 Long term (current) use of insulin; Z82.3 Family history of stroke; Z79.899 Other long term (current) drug therapy; Z82.49 Family history of ischemic heart disease and other diseases of the circulatory system; Z83.3 Family history of diabetes mellitus; Z87.19 Personal history of other diseases of the digestive system; Z98.41 Cataract extraction status, right eye; D63.8 Anemia in other chronic diseases classified elsewhere; R26.9 Unspecified abnormalities of gait and mobility; I87.8 Other specified disorders of veins; M19.90 Unspecified osteoarthritis, unspecified site; Z68.28 Body mass index [BMI] 28.0-28.9, adult
CPT/HCPCS: 36415; 71045; 71046; 74018; 74177; 80048; 80061; 80069; 80076; 82043; 82085; 82150; 82248; 82550; 82553; 82570; 82746; 82962; 83036; 83520; 83540; 83550; 83735; 83880; 84100; 84443; 84450; 84460; 84484; 84550; 85651; 86140; 86160; 86225; 86235; 86256; 86431; 92610; 93005; 93306; 93970; 96374; 96375; 96376; 97022; 97110; 97116; 97162; 97166; 97530; 97535; 99285; J0360; J1815; J1940; J2405; J2920; J3480; J3490; J7060; J7500; J7512; Q9967

== ENCOUNTER 2021-02-25 21:12 | Inpatient (IN) | payer MEDICARE, OTHER ==
[~2021-02-25] VITALS: Ht 182.9 cm; Wt 87.1 kg
[~2021-02-25 21:12] MED LIST changes: -CLIN300C11 PO; +CLON0.2T PO; -COLC0.6T66 PO; -GLIM4TAB2 PO; +GLIM4TAB36 PO
[2021-02-25] MEDS ORDERED: PROPOFOL 10MG/ML 100ML 100 ML IV ONE (21:30)
[2021-02-25] MEDS ORDERED: LEVOFLOXACIN 750MG PREMIX 150 ML IV ONE (21:30)
[2021-02-25] MEDS ORDERED: FENTANYL CITRATE/PF 50MCG/ML 2ML VIAL IV ONE (22:00)
[2021-02-25] MEDS ORDERED: MIDAZOLAM HCL 2 MG/2 ML VIAL IV ONE (22:15)
[2021-02-25 22:48] LABS: BG BASE EXCESS -3.5 mmol/L (-2.0-2.0); BG CARBOXYHEMOGLOBIN 2.9 % (0.5-1.5); BG DEOXYHEMOGLOBIN 4.7 % (0.0-5.0); BG FRACTION INSPIRED OXYGEN 100; BG HCO3 ACT 22.8 mmol/L (22.0-26.0); BG METHEMOGLOBIN 0.1 % (0.0-1.5); BG OXYGEN SATURATION 95.2 % (92.0-98.5); BG OXYHEMOGLOBIN 92.3 % (94.0-97.0); BG PCO2 45.8 mmHg (35.0-45.0); BG PH 7.314 (7.350-7.450); BG PO2 84.7 mmHg (75.0-100.0); BG SAMPLE SITE RIGHT RADIAL; BG TOTAL HEMOGLOBIN 12.2 g/dL (12.0-18.0); BG VENT MODE VENT - AC
[2021-02-25 22:54] LABS: HEMOGLOBIN. 12.5 g/dL (14.0-18.0); MEAN CORPUSCULAR HEMOGLOBIN 34.7 pg (28.0-32.0); MEAN CORPUSCULAR VOLUME 105.6 fL (80.0-94.0); MEAN PLATELET VOLUME 9.5 fl (7.4-10.4); PLATELET 209 x1000/uL (130-400); RED CELL DISTRIBUTION WIDTH 16.3 % (11.6-14.6)
[2021-02-25] MEDS ORDERED: FUROSEMIDE 100MG/10ML VIAL IVP NR (23:00)
[2021-02-25 23:09] LABS: CHLORIDE 104 mEq/L (98-107)
[2021-02-25 23:13] LABS: ETHANOL BLOOD < 10 mg/dL
[2021-02-25] MEDS ORDERED: FENTANYL CITRATE/PF 500 MCG in SODIUM CHLORIDE 0.9% 40 ML IV PRN (23:30)
[2021-02-25 23:31] LABS: PLATELET ESTIMATE NORMAL
[2021-02-26] VITALS (25 sets, daily range): BP systolic 107–148; BP diastolic 54–71
[2021-02-26 00:10] LABS: CLARITY URINE CLEAR (CLEAR); COLOR URINE DARK YELLOW (YELLOW); KETONES URINE 1+ (NEGATIVE); LEUKOCYTE ESTERASE URINE TRACE (NEGATIVE); NITRITE URINE NEGATIVE (NEGATIVE); OCCULT BLOOD URINE NEGATIVE (NEGATIVE); PROTEIN URINE 2+ (NEGATIVE); SPECIFIC GRAVITY URINE 1.022 (1.005-1.030)
[2021-02-26] MEDS: FENTANYL CITRATE 2,500 MCG in SODIUM CHLORIDE 0.9% 200 ML IV PRN ×2 (00:16→11:36)
[2021-02-26 00:30] LABS: *AMPHETAMINES SCREEN URINE NEGATIVE (NEGATIVE); *BARBITURATES SCREEN URINE NEGATIVE (NEGATIVE)
[2021-02-26 00:31] LABS: *BENZODIAZEPINES SCREEN URINE NEGATIVE (NEGATIVE); *COCAINE SCREEN URINE NEGATIVE (NEGATIVE); CANNABINOID URINE SCREEN NEGATIVE (NEGATIVE); METHADONE URINE SCREEN NEGATIVE (NEGATIVE); OPIATES URINE SCREEN NEGATIVE (NEGATIVE)
[2021-02-26 00:32] LABS: PHENCYCLIDINE URINE SCREEN NEGATIVE (NEGATIVE)
[2021-02-26] MEDS ORDERED: SUCCINYLCHOLINE CHLORIDE 200MG/10ML IV ONE (01:00)
[2021-02-26] MEDS ORDERED: ETOMIDATE 2MG/ML 10ML VIAL IV ONE (01:00)
[2021-02-26] MEDS ORDERED: PROPOFOL 10MG/ML 100ML 100 ML IV ONE (01:15)
[2021-02-26] MEDS ORDERED: ASPIRIN 300MG SUPP PR ONE (02:15)
[2021-02-26] MEDS ORDERED: ENOXAPARIN 80MG/0.8ML SYR SUBCUT NR (03:45)
[2021-02-26] MEDS ORDERED: ENOXAPARIN 100MG/ML SYR SUBCUT NR (03:45)
[2021-02-26] MEDS ORDERED: NITROGLYCERIN 50MG PREMIX 250 ML IV ONE (04:00)
[2021-02-26 04:32] LABS: INR 1.2; PROTHROMBIN TIME 13.1 sec (9.6-11.0)
[2021-02-26] MEDS: PROPOFOL 10MG/ML 100ML 100 ML IV PRN ×3 (07:42→21:28)
[2021-02-26] MEDS: PANTOPRAZOLE SODIUM 40 MG/VIAL IV SCH (10:08)
[2021-02-26] MEDS: AMLODIPINE 2.5MG TABLET NG SCH (10:45)
[2021-02-26] MEDS: BLOOD SUGAR DIAGNOSTIC STRIP TEST SCH ×3 (11:34→21:59)
[2021-02-26] MEDS: INSULIN LISPRO 100 UNITS/ML SUBCUT SCH ×3 (11:40→22:05)
[2021-02-26] MEDS: NITROGLYCERIN 50MG PREMIX 250 ML IV PRN ×2 (12:14→23:12)
[2021-02-26] MEDS: ENOXAPARIN 100MG/ML SYR SUBCUT SCH (16:55)
[2021-02-26] MEDS ORDERED: NITROGLYCERIN 50MG PREMIX 250 ML IV PRN (19:15)
[2021-02-26] MEDS: FENTANYL CITRATE/PF 2,500 MCG in SODIUM CHLORIDE 0.9% 200 ML IV PRN (21:31)
[2021-02-26] MEDS: ATORVASTATIN CALCIUM 20MG TABLET NG SCH (22:04)
[2021-02-27] VITALS (98 sets, daily range): BP systolic 90–152; BP diastolic 42–91
[2021-02-27] MEDS: PROPOFOL 10MG/ML 100ML 100 ML IV PRN ×3 (04:54→14:06)
[2021-02-27] MEDS: NITROGLYCERIN 50MG PREMIX 250 ML IV PRN ×4 (04:55→19:03)
[2021-02-27 05:55] LABS: HEMATOCRIT. 28.3 % (42.0-52.0); HEMOGLOBIN. 9.8 g/dL (14.0-18.0); MEAN CORPUSCULAR HEMOGLOBIN 35.4 pg (28.0-32.0); MEAN CORPUSCULAR VOLUME 102.1 fL (80.0-94.0); MEAN PLATELET VOLUME 9.9 fl (7.4-10.4); PLATELET 136 x1000/uL (130-400); RED BLOOD CELL COUNT 2.77 mill/uL (4.7-6.1); RED CELL DISTRIBUTION WIDTH 15.6 % (11.6-14.6)
[2021-02-27] MEDS: ENOXAPARIN 100MG/ML SYR SUBCUT SCH ×2 (06:04→19:02)
[2021-02-27] MEDS: BLOOD SUGAR DIAGNOSTIC STRIP TEST SCH ×4 (06:16→21:32)
[2021-02-27] MEDS: INSULIN LISPRO 100 UNITS/ML SUBCUT SCH ×4 (06:17→21:00)
[2021-02-27 07:55] LABS: BG BASE EXCESS 6.7 mmol/L (-2.0-2.0); BG CARBOXYHEMOGLOBIN 0.3 % (0.5-1.5); BG DEOXYHEMOGLOBIN 0.1 % (0.0-5.0); BG HCO3 ACT 32.5 mmol/L (22.0-26.0); BG METHEMOGLOBIN 0.3 % (0.0-1.5); BG OXYGEN SATURATION 99.9 % (92.0-98.5); BG OXYHEMOGLOBIN 99.3 % (94.0-97.0); BG PCO2 53.2 mmHg (35.0-45.0); BG PH 7.404 (7.350-7.450); BG PO2 339.1 mmHg (75.0-100.0); BG SAMPLE SITE RIGHT RADIAL; BG VENT MODE VENT - AC
[2021-02-27] MEDS ORDERED: LIDOCAINE HCL 1% 20ML VIAL (Pyxis) INJ ONE (08:44)
[2021-02-27] MEDS: IPRATROPIUM/ALBUTEROL 0.5-3(2.5)MG/3ML NEB HHN SCH ×5 (09:22→20:29)
[2021-02-27 10:16] LABS: NUCLEATED RED BLOOD CELLS 1 /100 WBC
[2021-02-27] MEDS: ASPIRIN 81MG TABLET PO SCH (10:16)
[2021-02-27 10:17] LABS: PLATELET ESTIMATE NORMAL
[2021-02-27] MEDS: AMLODIPINE 2.5MG TABLET NG SCH (10:17)
[2021-02-27] MEDS: PANTOPRAZOLE SODIUM 40 MG/VIAL IV SCH (10:17)
[2021-02-27] MEDS ORDERED: LEVOFLOXACIN 500MG PREMIX 100 ML IV NR (11:30)
[2021-02-27] MEDS: FENTANYL CITRATE/PF 2,500 MCG in SODIUM CHLORIDE 0.9% 200 ML IV PRN (14:00)
[2021-02-27] MEDS: ATORVASTATIN CALCIUM 20MG TABLET NG SCH (21:28)
[2021-02-27] MEDS ORDERED: PROPOFOL 10MG/ML 100ML 100 ML IV NR (23:15)
[2021-02-28] VITALS (99 sets, daily range): BP systolic 100–142; BP diastolic 42–96
[2021-02-28] MEDS: IPRATROPIUM/ALBUTEROL 0.5-3(2.5)MG/3ML NEB HHN SCH ×5 (00:14→20:36)
[2021-02-28] MEDS: NITROGLYCERIN 50MG PREMIX 250 ML IV PRN ×6 (00:19→22:37)
[2021-02-28] MEDS: ENOXAPARIN 100MG/ML SYR SUBCUT SCH ×2 (04:58→16:00)
[2021-02-28] MEDS: BLOOD SUGAR DIAGNOSTIC STRIP TEST SCH ×4 (05:31→20:46)
[2021-02-28 06:02] LABS: HEMATOCRIT. 25.1 % (42.0-52.0); HEMOGLOBIN. 8.8 g/dL (14.0-18.0); MEAN CORPUSCULAR HEMOGLOBIN 35.8 pg (28.0-32.0); MEAN CORPUSCULAR VOLUME 102.3 fL (80.0-94.0); MEAN PLATELET VOLUME 10.1 fl (7.4-10.4); PLATELET 120 x1000/uL (130-400); RED BLOOD CELL COUNT 2.45 mill/uL (4.7-6.1); RED CELL DISTRIBUTION WIDTH 15.7 % (11.6-14.6)
[2021-02-28] MEDS: PROPOFOL 10MG/ML 100ML 100 ML IV PRN ×3 (06:14→18:22)
[2021-02-28] MEDS: INSULIN LISPRO 100 UNITS/ML SUBCUT SCH ×4 (06:15→20:47)
[2021-02-28 06:23] LABS: CHLORIDE 100 mEq/L (98-107)
[2021-02-28] MEDS: AMLODIPINE 2.5MG TABLET NG SCH ×2 (08:46→17:04)
[2021-02-28] MEDS: ASPIRIN 81MG TABLET PO SCH (08:46)
[2021-02-28] MEDS: PANTOPRAZOLE SODIUM 40 MG/VIAL IV SCH (08:46)
[2021-02-28] MEDS: FENTANYL CITRATE/PF 2,500 MCG in SODIUM CHLORIDE 0.9% 200 ML IV PRN (08:48)
[2021-02-28 10:24] LABS: BG BASE EXCESS 3.3 mmol/L (-2.0-2.0); BG CARBOXYHEMOGLOBIN 0.8 % (0.5-1.5); BG DEOXYHEMOGLOBIN 1.2 % (0.0-5.0); BG FRACTION INSPIRED OXYGEN 40; BG HCO3 ACT 28.3 mmol/L (22.0-26.0); BG METHEMOGLOBIN 0.3 % (0.0-1.5); BG OXYGEN SATURATION 98.8 % (92.0-98.5); BG OXYHEMOGLOBIN 97.7 % (94.0-97.0); BG PCO2 45.3 mmHg (35.0-45.0); BG PH 7.413 (7.350-7.450); BG PO2 130.9 mmHg (75.0-100.0); BG SAMPLE SITE RIGHT RADIAL; BG TOTAL HEMOGLOBIN 8.7 g/dL (12.0-18.0); BG VENT MODE VENT - AC
[2021-02-28] MEDS ORDERED: LEVOFLOXACIN 250MG PREMIX 50 ML IV SCH (11:00)
[2021-02-28 12:33] LABS: PLATELET ESTIMATE SLIGHTLY DECREASED
[2021-02-28 16:45] LABS: HEMOGLOBIN 8.7 g/dL (14.0-18.0)
[2021-02-28] MEDS: METRONIDAZOLE 500MG TABLET PO SCH ×2 (17:05→21:01)
[2021-02-28] MEDS: ATORVASTATIN CALCIUM 20MG TABLET NG SCH (20:45)
[2021-02-28] MEDS: CARVEDILOL 3.125 MG TABLET PO SCH (20:46)
[2021-03-01] VITALS (102 sets, daily range): BP systolic 88–163; BP diastolic 41–83
[2021-03-01] MEDS: IPRATROPIUM/ALBUTEROL 0.5-3(2.5)MG/3ML NEB HHN SCH ×7 (00:29→23:43)
[2021-03-01] MEDS: FENTANYL CITRATE/PF 2,500 MCG in SODIUM CHLORIDE 0.9% 200 ML IV PRN ×2 (02:29→20:49)
[2021-03-01] MEDS: PROPOFOL 10MG/ML 100ML 100 ML IV PRN ×3 (02:33→17:08)
[2021-03-01] MEDS: NITROGLYCERIN 50MG PREMIX 250 ML IV PRN ×2 (03:52→13:23)
[2021-03-01] MEDS: ENOXAPARIN 100MG/ML SYR SUBCUT SCH ×2 (04:00→08:05)
[2021-03-01 05:33] LABS: HEMATOCRIT. 24.7 % (42.0-52.0); HEMOGLOBIN. 8.5 g/dL (14.0-18.0); MEAN CORPUSCULAR HEMOGLOBIN 35.6 pg (28.0-32.0); MEAN CORPUSCULAR VOLUME 103.4 fL (80.0-94.0); MEAN PLATELET VOLUME 10.2 fl (7.4-10.4); PLATELET 123 x1000/uL (130-400); RED BLOOD CELL COUNT 2.39 mill/uL (4.7-6.1); RED CELL DISTRIBUTION WIDTH 15.5 % (11.6-14.6)
[2021-03-01] MEDS: METRONIDAZOLE 500MG TABLET PO SCH ×3 (05:36→21:29)
[2021-03-01 05:52] LABS: CHLORIDE 100 mEq/L (98-107)
[2021-03-01] MEDS: INSULIN LISPRO 100 UNITS/ML SUBCUT SCH ×4 (08:15→23:14)
[2021-03-01] MEDS: BLOOD SUGAR DIAGNOSTIC STRIP TEST SCH ×4 (08:15→23:14)
[2021-03-01] MEDS: PANTOPRAZOLE SODIUM 40 MG/VIAL IV SCH ×2 (09:07→17:07)
[2021-03-01] MEDS: AMLODIPINE 2.5MG TABLET NG SCH ×2 (09:08→21:29)
[2021-03-01] MEDS: CARVEDILOL 3.125 MG TABLET PO SCH ×3 (09:09→21:29)
[2021-03-01] MEDS: LEVOFLOXACIN 500MG PREMIX 100 ML IV SCH (10:54)
[2021-03-01] MEDS ORDERED: PROPOFOL 10MG/ML 100ML 100 ML IV PRN (11:15)
[2021-03-01 15:09] LABS: BG BASE EXCESS 3.9 mmol/L (-2.0-2.0); BG DEOXYHEMOGLOBIN 2.2 % (0.0-5.0); BG FRACTION INSPIRED OXYGEN 35; BG HCO3 ACT 30.1 mmol/L (22.0-26.0); BG METHEMOGLOBIN 0.5 % (0.0-1.5); BG OXYGEN SATURATION 97.8 % (92.0-98.5); BG OXYHEMOGLOBIN 97.3 % (94.0-97.0); BG PCO2 54.1 mmHg (35.0-45.0); BG PH 7.363 (7.350-7.450); BG PO2 106.2 mmHg (75.0-100.0); BG SAMPLE SITE RIGHT RADIAL; BG TOTAL HEMOGLOBIN 9.7 g/dL (12.0-18.0); BG VENT MODE VENT - AC
[2021-03-01] MEDS ORDERED: NITROPRUSSIDE 50 MG in SODIUM CHLORIDE 0.9% 250 ML IV PRN (17:00)
[2021-03-01] MEDS: METOCLOPRAMIDE HCL 10MG/2ML VIAL IV SCH ×2 (17:07→23:16)
[2021-03-01] MEDS: SUCRALFATE 1 G/10 ML UDC PO SCH ×2 (17:07→21:28)
[2021-03-01 17:35] LABS: PLATELET ESTIMATE SLIGHTLY DECREASED
[2021-03-01 17:38] LABS: TOTAL IRON BINDING CAPACITY 145 ug/dL (250-450)
[2021-03-01 18:11] LABS: FERRITIN 154 ng/mL (22-322)
[2021-03-01 18:29] LABS: VITAMIN B12 SERUM > 2000.0 pg/mL (211-911)
[2021-03-01] MEDS: ACETAMINOPHEN 325MG TABLET PO PRN (21:28)
[2021-03-01] MEDS: ATORVASTATIN CALCIUM 20MG TABLET NG SCH (21:31)
[2021-03-02] VITALS (68 sets, daily range): BP systolic 105–153; BP diastolic 41–95
[2021-03-02] MEDS: IPRATROPIUM/ALBUTEROL 0.5-3(2.5)MG/3ML NEB HHN SCH ×5 (03:40→21:10)
[2021-03-02] MEDS: PANTOPRAZOLE SODIUM 40 MG/VIAL IV SCH ×2 (05:26→17:56)
[2021-03-02] MEDS: METOCLOPRAMIDE HCL 10MG/2ML VIAL IV SCH ×3 (05:26→17:56)
[2021-03-02] MEDS: METRONIDAZOLE 500MG TABLET PO SCH ×3 (05:27→22:00)
[2021-03-02] MEDS: CARVEDILOL 3.125 MG TABLET PO SCH ×3 (05:27→22:00)
[2021-03-02] MEDS: SUCRALFATE 1 G/10 ML UDC PO SCH ×4 (05:31→20:30)
[2021-03-02] MEDS: BLOOD SUGAR DIAGNOSTIC STRIP TEST SCH ×3 (05:32→17:17)
[2021-03-02] MEDS: INSULIN LISPRO 100 UNITS/ML SUBCUT SCH ×3 (05:32→17:17)
[2021-03-02 06:17] LABS: CHLORIDE 100 mEq/L (98-107)
[2021-03-02 06:21] LABS: HEMATOCRIT. 32.2 % (42.0-52.0); HEMOGLOBIN. 10.5 g/dL (14.0-18.0); MEAN CORPUSCULAR HEMOGLOBIN 33.2 pg (28.0-32.0); MEAN CORPUSCULAR VOLUME 101.5 fL (80.0-94.0); MEAN PLATELET VOLUME 9.7 fl (7.4-10.4); PLATELET 128 x1000/uL (130-400); RED BLOOD CELL COUNT 3.18 mill/uL (4.7-6.1); RED CELL DISTRIBUTION WIDTH 17.2 % (11.6-14.6)
[2021-03-02 09:08] LABS: BG BASE EXCESS 1.4 mmol/L (-2.0-2.0); BG CARBOXYHEMOGLOBIN 0.1 % (0.5-1.5); BG FRACTION INSPIRED OXYGEN 30; BG HCO3 ACT 27.2 mmol/L (22.0-26.0); BG METHEMOGLOBIN 0.3 % (0.0-1.5); BG OXYHEMOGLOBIN 97.6 % (94.0-97.0); BG PCO2 48.5 mmHg (35.0-45.0); BG PH 7.367 (7.350-7.450); BG PO2 114.5 mmHg (75.0-100.0); BG SAMPLE SITE RIGHT RADIAL; BG TOTAL HEMOGLOBIN 10.9 g/dL (12.0-18.0); BG TOTAL RESPIRATORY RATE 20 b/min; BG VENT MODE VENT - AC
[2021-03-02] MEDS: AMLODIPINE 2.5MG TABLET NG SCH ×2 (09:16→20:30)
[2021-03-02] MEDS: LEVOFLOXACIN 500MG PREMIX 100 ML IV SCH (10:29)
[2021-03-02 11:05] LABS: PLATELET ESTIMATE SLIGHTLY DECREASED
[2021-03-02] MEDS: FENTANYL CITRATE/PF 2,500 MCG in SODIUM CHLORIDE 0.9% 200 ML IV PRN (12:19)
[2021-03-02] MEDS: ATORVASTATIN CALCIUM 20MG TABLET NG SCH (20:30)
[2021-03-03] VITALS (49 sets, daily range): BP systolic 123–163; BP diastolic 27–87
[2021-03-03] MEDS: METOCLOPRAMIDE HCL 10MG/2ML VIAL IV SCH ×5 (00:31→23:26)
[2021-03-03] MEDS: IPRATROPIUM/ALBUTEROL 0.5-3(2.5)MG/3ML NEB HHN SCH ×6 (00:58→21:12)
[2021-03-03] MEDS: FENTANYL CITRATE/PF 2,500 MCG in SODIUM CHLORIDE 0.9% 200 ML IV PRN ×2 (01:33→12:11)
[2021-03-03] MEDS: BLOOD SUGAR DIAGNOSTIC STRIP TEST SCH ×5 (05:24→23:25)
[2021-03-03] MEDS: INSULIN LISPRO 100 UNITS/ML SUBCUT SCH ×5 (05:24→23:25)
[2021-03-03] MEDS: METRONIDAZOLE 500MG TABLET PO SCH ×3 (05:25→21:09)
[2021-03-03] MEDS: PANTOPRAZOLE SODIUM 40 MG/VIAL IV SCH ×2 (05:25→17:14)
[2021-03-03] MEDS: CARVEDILOL 3.125 MG TABLET PO SCH (05:25)
[2021-03-03] MEDS: SUCRALFATE 1 G/10 ML UDC PO SCH ×4 (05:31→20:37)
[2021-03-03 06:11] LABS: CHLORIDE 99 mEq/L (98-107)
[2021-03-03 06:27] LABS: HEMATOCRIT. 34.2 % (42.0-52.0); HEMOGLOBIN. 11.3 g/dL (14.0-18.0); MEAN CORPUSCULAR HEMOGLOBIN 33.7 pg (28.0-32.0); MEAN CORPUSCULAR VOLUME 102.3 fL (80.0-94.0); MEAN PLATELET VOLUME 9.7 fl (7.4-10.4); PLATELET 127 x1000/uL (130-400); RED BLOOD CELL COUNT 3.34 mill/uL (4.7-6.1); RED CELL DISTRIBUTION WIDTH 16.7 % (11.6-14.6)
[2021-03-03 08:23] LABS: BG SAMPLE SITE RIGHT RADIAL
[2021-03-03 08:24] LABS: BG HCO3 ACT 29.2 mmol/L (22.0-26.0); BG PCO2 59.2 mmHg (35.0-45.0); BG PH 7.311 (7.350-7.450); BG PO2 89.5 mmHg (75.0-100.0); BG TIDAL VOLUME(mL) 500 mL; BG TOTAL RESPIRATORY RATE 16 b/min; BG VENT MODE VENT/AC; BG VENT RATE 16 set
[2021-03-03 08:25] LABS: BG BASE EXCESS 1.9 mmol/L (-2.0-2.0); BG CARBOXYHEMOGLOBIN 0.4 % (0.5-1.5); BG DEOXYHEMOGLOBIN 3.8 % (0.0-5.0); BG METHEMOGLOBIN 0.3 % (0.0-1.5); BG OXYGEN SATURATION 96.2 % (92.0-98.5); BG OXYHEMOGLOBIN 95.5 % (94.0-97.0); BG TOTAL HEMOGLOBIN 11.5 g/dL (12.0-18.0)
[2021-03-03] MEDS: AMLODIPINE 2.5MG TABLET NG SCH ×2 (09:41→20:38)
[2021-03-03] MEDS ORDERED: FUROSEMIDE 40MG/4ML VIAL IVP NR (10:45)
[2021-03-03] MEDS: LEVOFLOXACIN 500MG PREMIX 100 ML IV SCH (12:09)
[2021-03-03 14:11] LABS: PLATELET ESTIMATE SLIGHTLY DECREASED
[2021-03-03] MEDS: ACETYLCYSTEINE 100MG/ML 10% VIAL 4ML INH SCH ×2 (16:56→21:12)
[2021-03-03] MEDS ORDERED: FENTANYL CITRATE/PF 2,500 MCG in SODIUM CHLORIDE 0.9% 200 ML IV PRN (19:45)
[2021-03-03] MEDS: ATORVASTATIN CALCIUM 20MG TABLET NG SCH (20:38)
[2021-03-03] MEDS: CARVEDILOL 6.25 MG TABLET NG SCH (20:38)
[2021-03-04] VITALS (48 sets, daily range): BP systolic 123–159; BP diastolic 30–94
[2021-03-04] MEDS: IPRATROPIUM/ALBUTEROL 0.5-3(2.5)MG/3ML NEB HHN SCH ×6 (00:27→20:28)
[2021-03-04] MEDS: ACETAMINOPHEN 325MG TABLET PO PRN ×2 (00:36→16:22)
[2021-03-04] MEDS: METOCLOPRAMIDE HCL 10MG/2ML VIAL IV SCH ×4 (05:31→23:20)
[2021-03-04] MEDS: SUCRALFATE 1 G/10 ML UDC PO SCH ×4 (05:31→20:28)
[2021-03-04] MEDS: METRONIDAZOLE 500MG TABLET PO SCH ×3 (05:31→21:06)
[2021-03-04] MEDS: PANTOPRAZOLE SODIUM 40 MG/VIAL IV SCH ×2 (05:31→19:34)
[2021-03-04] MEDS: BLOOD SUGAR DIAGNOSTIC STRIP TEST SCH ×4 (05:32→23:20)
[2021-03-04] MEDS: INSULIN LISPRO 100 UNITS/ML SUBCUT SCH ×4 (05:32→23:20)
[2021-03-04 06:01] LABS: HEMATOCRIT. 34.3 % (42.0-52.0); HEMOGLOBIN. 11.5 g/dL (14.0-18.0); MEAN CORPUSCULAR HEMOGLOBIN 33.8 pg (28.0-32.0); MEAN CORPUSCULAR VOLUME 101.1 fL (80.0-94.0); MEAN PLATELET VOLUME 9.7 fl (7.4-10.4); PLATELET 119 x1000/uL (130-400); RED BLOOD CELL COUNT 3.39 mill/uL (4.7-6.1); RED CELL DISTRIBUTION WIDTH 16.9 % (11.6-14.6)
[2021-03-04 06:20] LABS: CHLORIDE 100 mEq/L (98-107)
[2021-03-04] MEDS: ACETYLCYSTEINE 100MG/ML 10% VIAL 4ML INH SCH ×2 (08:47→16:19)
[2021-03-04 08:58] LABS: BG BASE EXCESS 3.7 mmol/L (-2.0-2.0); BG CARBOXYHEMOGLOBIN 0.3 % (0.5-1.5); BG FRACTION INSPIRED OXYGEN 35; BG HCO3 ACT 29.6 mmol/L (22.0-26.0); BG METHEMOGLOBIN 0.3 % (0.0-1.5); BG OXYHEMOGLOBIN 97.4 % (94.0-97.0); BG PCO2 50.8 mmHg (35.0-45.0); BG PH 7.384 (7.350-7.450); BG PO2 107.2 mmHg (75.0-100.0); BG SAMPLE SITE RIGHT RADIAL; BG TOTAL HEMOGLOBIN 11.5 g/dL (12.0-18.0); BG VENT MODE VENT - AC
[2021-03-04] MEDS: FUROSEMIDE 40MG/4ML VIAL IVP SCH (11:23)
[2021-03-04] MEDS: CARVEDILOL 6.25 MG TABLET NG SCH ×2 (11:24→20:29)
[2021-03-04] MEDS: AMLODIPINE 2.5MG TABLET NG SCH ×2 (11:24→20:28)
[2021-03-04] MEDS: LEVOFLOXACIN 500MG PREMIX 100 ML IV SCH (11:28)
[2021-03-04 14:21] LABS: PLATELET ESTIMATE SLIGHTLY DECREASED
[2021-03-04 14:48] LABS: BG BASE EXCESS 3.8 mmol/L (-2.0-2.0); BG CARBOXYHEMOGLOBIN 0.2 % (0.5-1.5); BG DEOXYHEMOGLOBIN 2.9 % (0.0-5.0); BG FRACTION INSPIRED OXYGEN 35; BG HCO3 ACT 29.2 mmol/L (22.0-26.0); BG METHEMOGLOBIN 0.2 % (0.0-1.5); BG OXYGEN SATURATION 97.1 % (92.0-98.5); BG OXYHEMOGLOBIN 96.7 % (94.0-97.0); BG PCO2 47.6 mmHg (35.0-45.0); BG PH 7.406 (7.350-7.450); BG PO2 92.9 mmHg (75.0-100.0); BG SAMPLE SITE RIGHT RADIAL; BG TOTAL HEMOGLOBIN 11.3 g/dL (12.0-18.0); BG VENT MODE VENT - CPAP
[2021-03-04] MEDS: ENOXAPARIN 40MG/0.4ML SYR SUBCUT SCH (19:34)
[2021-03-04] MEDS: ATORVASTATIN CALCIUM 20MG TABLET NG SCH (20:28)
[2021-03-05] VITALS (48 sets, daily range): BP systolic 112–167; BP diastolic 41–99
[2021-03-05] MEDS: ACETYLCYSTEINE 100MG/ML 10% VIAL 4ML INH SCH ×3 (00:27→15:14)
[2021-03-05] MEDS: IPRATROPIUM/ALBUTEROL 0.5-3(2.5)MG/3ML NEB HHN SCH ×6 (00:27→20:23)
[2021-03-05] MEDS: BLOOD SUGAR DIAGNOSTIC STRIP TEST SCH ×3 (05:25→17:48)
[2021-03-05] MEDS: PANTOPRAZOLE SODIUM 40 MG/VIAL IV SCH ×2 (05:28→17:36)
[2021-03-05] MEDS: INSULIN LISPRO 100 UNITS/ML SUBCUT SCH ×3 (05:29→17:49)
[2021-03-05] MEDS: METOCLOPRAMIDE HCL 10MG/2ML VIAL IV SCH ×3 (05:29→17:31)
[2021-03-05] MEDS: SUCRALFATE 1 G/10 ML UDC PO SCH ×4 (05:29→22:21)
[2021-03-05] MEDS: METRONIDAZOLE 500MG TABLET PO SCH ×2 (05:29→14:48)
[2021-03-05 06:10] LABS: CHLORIDE 101 mEq/L (98-107)
[2021-03-05 06:22] LABS: HEMATOCRIT. 33.8 % (42.0-52.0); HEMOGLOBIN. 11.4 g/dL (14.0-18.0); MEAN CORPUSCULAR HEMOGLOBIN 34.3 pg (28.0-32.0); MEAN CORPUSCULAR VOLUME 101.7 fL (80.0-94.0); MEAN PLATELET VOLUME 10.2 fl (7.4-10.4); PLATELET 114 x1000/uL (130-400); RED BLOOD CELL COUNT 3.33 mill/uL (4.7-6.1); RED CELL DISTRIBUTION WIDTH 16.1 % (11.6-14.6)
[2021-03-05 06:32] LABS: PHOSPHORUS 2.5 mg/dL (2.5-4.9)
[2021-03-05 08:21] LABS: PLATELET ESTIMATE SLIGHTLY DECREASED
[2021-03-05] MEDS: FUROSEMIDE 40MG/4ML VIAL IVP SCH (10:24)
[2021-03-05] MEDS: AMLODIPINE 2.5MG TABLET NG SCH ×2 (10:24→22:08)
[2021-03-05] MEDS: ASPIRIN 81MG TABLET PO SCH (10:24)
[2021-03-05] MEDS: CARVEDILOL 6.25 MG TABLET NG SCH ×2 (10:25→22:21)
[2021-03-05] MEDS: LEVOFLOXACIN 500MG PREMIX 100 ML IV SCH (10:25)
[2021-03-05] MEDS: ACETAMINOPHEN 325MG TABLET PO PRN ×3 (13:05→22:08)
[2021-03-05] MEDS: DOCUSATE SODIUM SUGAR FREE 100MG/10ML UDC NG SCH (14:48)
[2021-03-05] MEDS: NITROGLYCERIN OINT 1GM/INCH UDPKT TD SCH ×2 (14:49→22:08)
[2021-03-05 16:34] LABS: BG BASE EXCESS 7.4 mmol/L (-2.0-2.0); BG CARBOXYHEMOGLOBIN 0.5 % (0.5-1.5); BG DEOXYHEMOGLOBIN 7.8 % (0.0-5.0); BG FRACTION INSPIRED OXYGEN 60; BG HCO3 ACT 33.1 mmol/L (22.0-26.0); BG METHEMOGLOBIN 0.2 % (0.0-1.5); BG OXYGEN SATURATION 92.1 % (92.0-98.5); BG OXYHEMOGLOBIN 91.5 % (94.0-97.0); BG PCO2 51.9 mmHg (35.0-45.0); BG PH 7.422 (7.350-7.450); BG PO2 63.3 mmHg (75.0-100.0); BG SAMPLE SITE RIGHT RADIAL; BG TOTAL HEMOGLOBIN 11.3 g/dL (12.0-18.0); BG VENT MODE COOL AEROSOL
[2021-03-05] MEDS: ENOXAPARIN 40MG/0.4ML SYR SUBCUT SCH (17:36)
[2021-03-05] MEDS: ATORVASTATIN CALCIUM 20MG TABLET NG SCH (22:08)
[2021-03-06] VITALS (47 sets, daily range): BP systolic 123–167; BP diastolic 52–111
[2021-03-06] MEDS: IPRATROPIUM/ALBUTEROL 0.5-3(2.5)MG/3ML NEB HHN SCH ×6 (00:35→20:46)
[2021-03-06] MEDS: ACETYLCYSTEINE 100MG/ML 10% VIAL 4ML INH SCH ×3 (00:35→11:22)
[2021-03-06] MEDS: METOCLOPRAMIDE HCL 10MG/2ML VIAL IV SCH ×4 (00:43→18:34)
[2021-03-06] MEDS: BLOOD SUGAR DIAGNOSTIC STRIP TEST SCH ×4 (00:44→18:34)
[2021-03-06 05:46] LABS: CHLORIDE 104 mEq/L (98-107)
[2021-03-06] MEDS: INSULIN LISPRO 100 UNITS/ML SUBCUT SCH ×4 (06:00→18:35)
[2021-03-06 06:07] LABS: HEMATOCRIT. 33.7 % (42.0-52.0); HEMOGLOBIN. 11.1 g/dL (14.0-18.0); MEAN CORPUSCULAR HEMOGLOBIN 33.3 pg (28.0-32.0); MEAN CORPUSCULAR VOLUME 101.4 fL (80.0-94.0); MEAN PLATELET VOLUME 10.2 fl (7.4-10.4); PLATELET 127 x1000/uL (130-400); RED BLOOD CELL COUNT 3.32 mill/uL (4.7-6.1); RED CELL DISTRIBUTION WIDTH 16.9 % (11.6-14.6)
[2021-03-06] MEDS: NITROGLYCERIN OINT 1GM/INCH UDPKT TD SCH ×2 (06:23→16:38)
[2021-03-06] MEDS: SUCRALFATE 1 G/10 ML UDC PO SCH ×4 (06:23→21:31)
[2021-03-06] MEDS: PANTOPRAZOLE SODIUM 40 MG/VIAL IV SCH ×2 (06:31→18:34)
[2021-03-06] MEDS: FUROSEMIDE 40MG/4ML VIAL IVP SCH (08:06)
[2021-03-06] MEDS: DOCUSATE SODIUM SUGAR FREE 100MG/10ML UDC NG SCH (08:06)
[2021-03-06] MEDS: ASPIRIN 81MG TABLET PO SCH (08:08)
[2021-03-06] MEDS: CARVEDILOL 6.25 MG TABLET NG SCH ×2 (08:08→21:30)
[2021-03-06] MEDS: AMLODIPINE 2.5MG TABLET NG SCH ×2 (08:10→21:31)
[2021-03-06] MEDS ORDERED: INSULIN GLARGINE UD 100 UNITS/ML SYR SUBCUT SCH (10:00)
[2021-03-06] MEDS: ENOXAPARIN 40MG/0.4ML SYR SUBCUT SCH (18:35)
[2021-03-06] MEDS: ATORVASTATIN CALCIUM 20MG TABLET NG SCH (21:31)
[2021-03-06] MEDS: LORAZEPAM 2MG/ML CPJ IM PRN (21:32)
[2021-03-06] MEDS: ACETAMINOPHEN 325MG TABLET PO PRN (21:33)
[2021-03-07] VITALS (77 sets, daily range): BP systolic 95–181; BP diastolic 43–124
[2021-03-07 00:53] LABS: PLATELET ESTIMATE SLIGHTLY DECREASED
[2021-03-07] MEDS: IPRATROPIUM/ALBUTEROL 0.5-3(2.5)MG/3ML NEB HHN SCH ×5 (04:31→20:24)
[2021-03-07] MEDS: NITROGLYCERIN OINT 1GM/INCH UDPKT TD SCH ×4 (05:35→21:06)
[2021-03-07] MEDS: METOCLOPRAMIDE HCL 10MG/2ML VIAL IV SCH ×4 (05:36→23:44)
[2021-03-07] MEDS: SUCRALFATE 1 G/10 ML UDC PO SCH ×4 (05:36→21:06)
[2021-03-07] MEDS: BLOOD SUGAR DIAGNOSTIC STRIP TEST SCH ×5 (05:37→23:44)
[2021-03-07] MEDS: INSULIN LISPRO 100 UNITS/ML SUBCUT SCH ×5 (06:00→23:45)
[2021-03-07] MEDS: PANTOPRAZOLE SODIUM 40 MG/VIAL IV SCH ×2 (06:00→17:25)
[2021-03-07 06:14] LABS: CHLORIDE 106 mEq/L (98-107)
[2021-03-07 06:26] LABS: HEMATOCRIT. 35.1 % (42.0-52.0); HEMOGLOBIN. 11.3 g/dL (14.0-18.0); MEAN CORPUSCULAR HEMOGLOBIN 32.5 pg (28.0-32.0); MEAN CORPUSCULAR VOLUME 100.8 fL (80.0-94.0); RED BLOOD CELL COUNT 3.48 mill/uL (4.7-6.1); RED CELL DISTRIBUTION WIDTH 16.5 % (11.6-14.6)
[2021-03-07] MEDS: FUROSEMIDE 40MG/4ML VIAL IVP SCH (07:50)
[2021-03-07] MEDS: DOCUSATE SODIUM SUGAR FREE 100MG/10ML UDC NG SCH (07:50)
[2021-03-07] MEDS: ASPIRIN 81MG TABLET PO SCH (07:50)
[2021-03-07] MEDS: CARVEDILOL 6.25 MG TABLET NG SCH (07:51)
[2021-03-07] MEDS: AMLODIPINE 2.5MG TABLET NG SCH (07:52)
[2021-03-07] MEDS: ACETYLCYSTEINE 100MG/ML 10% VIAL 4ML INH SCH ×3 (09:34→20:23)
[2021-03-07 09:56] LABS: PLATELET ESTIMATE NORMAL
[2021-03-07 09:57] LABS: PLATELET 187 x1000/uL (130-400)
[2021-03-07] MEDS ORDERED: HYDRALAZINE HCL 100MG TABLET PO NR (12:15)
[2021-03-07] MEDS: CEFEPIME 1,000 MG in DEXTROSE 5% WATER 50 ML IV SCH ×2 (13:00→23:44)
[2021-03-07] MEDS: TRAMADOL 50MG TABLET PO PRN ×2 (15:50→21:07)
[2021-03-07] MEDS ORDERED: NALOXONE HCL 0.4MG/ML VIAL IV PRN (16:00)
[2021-03-07] MEDS: ENOXAPARIN 40MG/0.4ML SYR SUBCUT SCH (17:25)
[2021-03-07] MEDS: HYDRALAZINE HCL 100MG TABLET PO SCH (21:00)
[2021-03-07] MEDS: ATORVASTATIN CALCIUM 20MG TABLET NG SCH (21:06)
[2021-03-07] MEDS: CARVEDILOL 12.5MG TABLET NG SCH (21:07)
[2021-03-07] MEDS: AMLODIPINE 5MG TABLET NG SCH (21:07)
[2021-03-07] MEDS: ACETAMINOPHEN 325MG TABLET PO PRN (21:08)
[2021-03-07] MEDS: LORAZEPAM 2MG/ML CPJ IM PRN (21:09)
[2021-03-08] VITALS (77 sets, daily range): BP systolic 89–174; BP diastolic 41–89
[2021-03-08] MEDS: IPRATROPIUM/ALBUTEROL 0.5-3(2.5)MG/3ML NEB HHN SCH ×6 (00:27→20:50)
[2021-03-08] MEDS: PANTOPRAZOLE SODIUM 40 MG/VIAL IV SCH ×2 (05:23→17:51)
[2021-03-08] MEDS: SUCRALFATE 1 G/10 ML UDC PO SCH ×4 (05:23→21:17)
[2021-03-08] MEDS: NITROGLYCERIN OINT 1GM/INCH UDPKT TD SCH ×3 (05:24→23:30)
[2021-03-08] MEDS: METOCLOPRAMIDE HCL 10MG/2ML VIAL IV SCH ×4 (05:24→23:30)
[2021-03-08 05:52] LABS: CHLORIDE 106 mEq/L (98-107)
[2021-03-08 05:53] LABS: HEMOGLOBIN. 10.3 g/dL (14.0-18.0); MEAN CORPUSCULAR HEMOGLOBIN 33.4 pg (28.0-32.0); MEAN PLATELET VOLUME 10.9 fl (7.4-10.4); PLATELET 159 x1000/uL (130-400); RED CELL DISTRIBUTION WIDTH 16.8 % (11.6-14.6)
[2021-03-08] MEDS: BLOOD SUGAR DIAGNOSTIC STRIP TEST SCH ×4 (06:44→23:05)
[2021-03-08] MEDS: INSULIN LISPRO 100 UNITS/ML SUBCUT SCH ×4 (06:51→23:31)
[2021-03-08] MEDS: ACETYLCYSTEINE 100MG/ML 10% VIAL 4ML INH SCH ×2 (08:46→20:40)
[2021-03-08] MEDS: CEFEPIME 1,000 MG in DEXTROSE 5% WATER 50 ML IV SCH ×2 (09:07→21:17)
[2021-03-08] MEDS: FUROSEMIDE 40MG/4ML VIAL IVP SCH (09:09)
[2021-03-08] MEDS: AMLODIPINE 5MG TABLET NG SCH ×2 (09:10→21:17)
[2021-03-08] MEDS: CARVEDILOL 12.5MG TABLET NG SCH ×2 (09:10→21:18)
[2021-03-08] MEDS: ASPIRIN 81MG TABLET PO SCH (09:10)
[2021-03-08] MEDS: HYDRALAZINE HCL 100MG TABLET PO SCH ×2 (09:10→22:40)
[2021-03-08] MEDS: DOCUSATE SODIUM SUGAR FREE 100MG/10ML UDC NG SCH (09:49)
[2021-03-08] MEDS ORDERED: LACTULOSE 20G/30ML UDC PO NR (10:45)
[2021-03-08] MEDS ORDERED: BISACODYL 10MG SUPP PR NR (10:45)
[2021-03-08] MEDS ORDERED: METOCLOPRAMIDE HCL 10MG/2ML VIAL IV SCH (12:00)
[2021-03-08] MEDS: ENOXAPARIN 40MG/0.4ML SYR SUBCUT SCH (17:54)
[2021-03-08] MEDS: ATORVASTATIN CALCIUM 20MG TABLET NG SCH (21:18)
[2021-03-08] MEDS ORDERED: ENALAPRIL 2.5MG/2ML VIAL 2ML IV PRN (22:10)
[2021-03-09] VITALS (30 sets, daily range): BP systolic 93–170; BP diastolic 45–100
[2021-03-09] MEDS: IPRATROPIUM/ALBUTEROL 0.5-3(2.5)MG/3ML NEB HHN SCH ×5 (00:32→20:53)
[2021-03-09] MEDS: BLOOD SUGAR DIAGNOSTIC STRIP TEST SCH ×4 (05:28→23:04)
[2021-03-09] MEDS: METOCLOPRAMIDE HCL 10MG/2ML VIAL IV SCH ×4 (05:57→23:02)
[2021-03-09] MEDS: NITROGLYCERIN OINT 1GM/INCH UDPKT TD SCH ×3 (05:57→23:02)
[2021-03-09] MEDS: PANTOPRAZOLE SODIUM 40 MG/VIAL IV SCH ×2 (05:57→18:10)
[2021-03-09] MEDS: INSULIN LISPRO 100 UNITS/ML SUBCUT SCH ×4 (05:58→23:03)
[2021-03-09 06:16] LABS: HEMATOCRIT. 32.6 % (42.0-52.0); HEMOGLOBIN. 10.7 g/dL (14.0-18.0); MEAN CORPUSCULAR HEMOGLOBIN 33.2 pg (28.0-32.0); MEAN CORPUSCULAR VOLUME 100.6 fL (80.0-94.0); MEAN PLATELET VOLUME 11.6 fl (7.4-10.4); PLATELET 158 x1000/uL (130-400); RED BLOOD CELL COUNT 3.24 mill/uL (4.7-6.1); RED CELL DISTRIBUTION WIDTH 16.8 % (11.6-14.6)
[2021-03-09] MEDS: SUCRALFATE 1 G/10 ML UDC PO SCH ×4 (06:30→20:54)
[2021-03-09 06:34] LABS: PLATELET ESTIMATE NORMAL
[2021-03-09 06:52] LABS: CHLORIDE 107 mEq/L (98-107)
[2021-03-09] MEDS: DOCUSATE SODIUM SUGAR FREE 100MG/10ML UDC NG SCH ×2 (08:17→18:16)
[2021-03-09] MEDS: CEFEPIME 1,000 MG in DEXTROSE 5% WATER 50 ML IV SCH ×2 (08:17→20:55)
[2021-03-09] MEDS: CARVEDILOL 12.5MG TABLET NG SCH ×2 (08:18→20:57)
[2021-03-09] MEDS: FUROSEMIDE 40MG/4ML VIAL IVP SCH (08:18)
[2021-03-09] MEDS: AMLODIPINE 5MG TABLET NG SCH ×2 (08:18→20:55)
[2021-03-09] MEDS: HYDRALAZINE HCL 100MG TABLET PO SCH (08:19)
[2021-03-09] MEDS: ASPIRIN 81MG TABLET PO SCH (08:19)
[2021-03-09] MEDS: CLOPIDOGREL 75MG TABLET PO SCH (13:01)
[2021-03-09] MEDS: HYDRALAZINE HCL 25MG TABLET PO SCH ×2 (13:06→23:01)
[2021-03-09 14:28] LABS: PLATELET ESTIMATE NORMAL
[2021-03-09] MEDS ORDERED: POLYETHYLENE GLYCOL 3350 (17GM) 1 DOSE PACK NG NR (15:30)
[2021-03-09] MEDS: ATORVASTATIN CALCIUM 40MG TABLET PO SCH (20:55)
[2021-03-09] MEDS: TRAMADOL 50MG TABLET PO PRN (21:27)
[2021-03-09] MEDS: INSULIN GLARGINE UD 100 UNITS/ML SYR SUBCUT SCH (23:03)
[2021-03-10] VITALS (12 sets, daily range): BP systolic 106–154; BP diastolic 36–86
[2021-03-10] MEDS: IPRATROPIUM/ALBUTEROL 0.5-3(2.5)MG/3ML NEB HHN SCH ×6 (00:45→20:24)
[2021-03-10] MEDS: NITROGLYCERIN OINT 1GM/INCH UDPKT TD SCH ×3 (05:01→22:14)
[2021-03-10] MEDS: PANTOPRAZOLE SODIUM 40 MG/VIAL IV SCH ×2 (05:01→17:41)
[2021-03-10] MEDS: BLOOD SUGAR DIAGNOSTIC STRIP TEST SCH ×4 (05:02→23:02)
[2021-03-10] MEDS: INSULIN LISPRO 100 UNITS/ML SUBCUT SCH ×4 (05:02→23:03)
[2021-03-10] MEDS: METOCLOPRAMIDE HCL 10MG/2ML VIAL IV SCH ×4 (05:02→23:03)
[2021-03-10] MEDS: HYDRALAZINE HCL 25MG TABLET PO SCH ×3 (05:02→22:15)
[2021-03-10 06:46] LABS: CHLORIDE 110 mEq/L (98-107)
[2021-03-10 06:52] LABS: HEMATOCRIT. 31.2 % (42.0-52.0); HEMOGLOBIN. 10.3 g/dL (14.0-18.0); MEAN CORPUSCULAR VOLUME 100.1 fL (80.0-94.0); MEAN PLATELET VOLUME 11.3 fl (7.4-10.4); PLATELET 193 x1000/uL (130-400); RED BLOOD CELL COUNT 3.12 mill/uL (4.7-6.1); RED CELL DISTRIBUTION WIDTH 16.6 % (11.6-14.6)
[2021-03-10] MEDS ORDERED: DEXTROSE 5% WATER 1,000 ML IV SCH (08:30)
[2021-03-10] MEDS ORDERED: POTASSIUM CHLORIDE INJ 40 MEQ in DEXT 5% WATER 500 ML IV ONE (08:30)
[2021-03-10] MEDS ORDERED: POTASSIUM CHLORIDE INJ 40 MEQ in DEXT 5% WATER 250 ML IV ONE (08:30)
[2021-03-10] MEDS: SUCRALFATE 1 G/10 ML UDC PO SCH ×4 (09:40→22:15)
[2021-03-10] MEDS: TRAMADOL 50MG TABLET PO PRN (09:41)
[2021-03-10] MEDS: CLOPIDOGREL 75MG TABLET PO SCH (09:43)
[2021-03-10] MEDS: DOCUSATE SODIUM SUGAR FREE 100MG/10ML UDC NG SCH (09:43)
[2021-03-10] MEDS: AMLODIPINE 5MG TABLET NG SCH ×2 (09:44→22:14)
[2021-03-10] MEDS: KCL 20MEQ/100ML PREMIX 100 ML IV SCH ×2 (09:44→12:37)
[2021-03-10] MEDS: CARVEDILOL 12.5MG TABLET NG SCH ×2 (09:44→22:14)
[2021-03-10] MEDS: DEXTROSE 5% WATER 1,000 ML IV SCH (09:45)
[2021-03-10] MEDS: INSULIN GLARGINE UD 100 UNITS/ML SYR SUBCUT SCH ×2 (09:46→22:16)
[2021-03-10] MEDS: CEFEPIME 1,000 MG in DEXTROSE 5% WATER 50 ML IV SCH ×2 (10:15→22:14)
[2021-03-10] MEDS ORDERED: POLYETHYLENE GLYCOL 3350 (17GM) 1 DOSE PACK PO NR (15:30)
[2021-03-10] MEDS ORDERED: BISACODYL 5MG TABLET PO NR (15:30)
[2021-03-10] MEDS ORDERED: ENALAPRIL 1.25MG/ML VIAL 1ML IV PRN (15:45)
[2021-03-10] MEDS: ATORVASTATIN CALCIUM 40MG TABLET PO SCH (22:15)
[2021-03-11] VITALS (11 sets, daily range): BP systolic 121–152; BP diastolic 54–86
[2021-03-11] MEDS: IPRATROPIUM/ALBUTEROL 0.5-3(2.5)MG/3ML NEB HHN SCH ×5 (00:27→17:53)
[2021-03-11] MEDS: DEXTROSE 5% WATER 1,000 ML IV SCH (04:30)
[2021-03-11 05:28] LABS: CHLORIDE 110 mEq/L (98-107)
[2021-03-11] MEDS: METOCLOPRAMIDE HCL 10MG/2ML VIAL IV SCH ×4 (05:34→23:59)
[2021-03-11] MEDS: PANTOPRAZOLE SODIUM 40 MG/VIAL IV SCH ×2 (05:34→17:28)
[2021-03-11] MEDS: DEXTROSE 50% WATER 50ML SYRINGE IV PRN (05:35)
[2021-03-11] MEDS: NITROGLYCERIN OINT 1GM/INCH UDPKT TD SCH ×3 (05:35→21:59)
[2021-03-11] MEDS: INSULIN LISPRO 100 UNITS/ML SUBCUT SCH ×3 (05:36→17:28)
[2021-03-11] MEDS: BLOOD SUGAR DIAGNOSTIC STRIP TEST SCH ×3 (05:36→17:28)
[2021-03-11 06:11] LABS: HEMATOCRIT. 31.3 % (42.0-52.0); HEMOGLOBIN. 10.4 g/dL (14.0-18.0); MEAN CORPUSCULAR HEMOGLOBIN 33.1 pg (28.0-32.0); MEAN PLATELET VOLUME 11.6 fl (7.4-10.4); PLATELET 201 x1000/uL (130-400); RED BLOOD CELL COUNT 3.13 mill/uL (4.7-6.1); RED CELL DISTRIBUTION WIDTH 16.6 % (11.6-14.6)
[2021-03-11 07:12] LABS: PLATELET ESTIMATE NORMAL
[2021-03-11] MEDS ORDERED: POTASSIUM CHLORIDE 20MEQ/PACKET PO ONE ×2 (09:45→10:00)
[2021-03-11] MEDS: INSULIN GLARGINE UD 100 UNITS/ML SYR SUBCUT SCH (10:00)
[2021-03-11] MEDS ORDERED: POTASSIUM CHLORIDE 20MEQ/PACKET PO SCH (10:00)
[2021-03-11] MEDS: DOCUSATE SODIUM SUGAR FREE 100MG/10ML UDC NG SCH (10:47)
[2021-03-11] MEDS: AMLODIPINE 5MG TABLET NG SCH ×2 (10:47→20:13)
[2021-03-11] MEDS: SUCRALFATE 1 G/10 ML UDC PO SCH ×4 (10:47→20:14)
[2021-03-11] MEDS: CEFEPIME 1,000 MG in DEXTROSE 5% WATER 50 ML IV SCH ×2 (10:47→20:11)
[2021-03-11] MEDS: CLOPIDOGREL 75MG TABLET PO SCH (10:48)
[2021-03-11] MEDS: CARVEDILOL 12.5MG TABLET NG SCH ×2 (10:48→20:13)
[2021-03-11] MEDS: POLYETHYLENE GLYCOL 3350 (17GM) 1 DOSE PACK PO SCH (13:30)
[2021-03-11] MEDS: TRAMADOL 50MG TABLET PO PRN (13:36)
[2021-03-11] MEDS: HYDRALAZINE HCL 25MG TABLET PO SCH (14:00)
[2021-03-11 16:25] LABS: PLATELET ESTIMATE NORMAL
[2021-03-11] MEDS: ATORVASTATIN CALCIUM 40MG TABLET PO SCH (20:12)
[2021-03-11] MEDS: HYDRALAZINE HCL 50MG TABLET PO SCH (21:58)
[2021-03-12] VITALS (12 sets, daily range): BP systolic 100–138; BP diastolic 40–87
[2021-03-12] MEDS: DEXTROSE 5% WATER 1,000 ML IV SCH ×2 (00:01→20:49)
[2021-03-12] MEDS: PANTOPRAZOLE SODIUM 40 MG/VIAL IV SCH ×2 (05:32→17:06)
[2021-03-12] MEDS: METOCLOPRAMIDE HCL 10MG/2ML VIAL IV SCH ×3 (05:32→17:04)
[2021-03-12] MEDS: NITROGLYCERIN OINT 1GM/INCH UDPKT TD SCH ×3 (05:33→22:00)
[2021-03-12] MEDS: HYDRALAZINE HCL 50MG TABLET PO SCH ×3 (05:33→22:00)
[2021-03-12] MEDS: INSULIN LISPRO 100 UNITS/ML SUBCUT SCH ×4 (05:35→19:21)
[2021-03-12] MEDS: BLOOD SUGAR DIAGNOSTIC STRIP TEST SCH ×4 (05:36→17:53)
[2021-03-12 07:59] LABS: BASOPHILS % 0.2 % (0.0-2.0); EOSINOPHILS % 0.9 % (0.0-5.0); HEMATOCRIT. 23.2 % (42.0-52.0); HEMOGLOBIN. 7.6 g/dL (14.0-18.0); LYMPHOCYTES % 7.5 % (20.0-50.0); MEAN CORPUSCULAR HEMOGLOBIN 33.3 pg (28.0-32.0); MEAN CORPUSCULAR VOLUME 101.9 fL (80.0-94.0); MEAN PLATELET VOLUME 11.5 fl (7.4-10.4); MONOCYTES % 10.7 % (2.0-8.0); NEUTROPHILS % 80.7 % (40.0-76.0); PLATELET 139 x1000/uL (130-400); RED BLOOD CELL COUNT 2.27 mill/uL (4.7-6.1); RED CELL DISTRIBUTION WIDTH 16.6 % (11.6-14.6)
[2021-03-12 08:04] LABS: CHLORIDE 117 mEq/L (98-107)
[2021-03-12] MEDS ORDERED: POTASSIUM CHLORIDE 20MEQ/PACKET PO NR ×2 (08:30→17:00)
[2021-03-12] MEDS: IPRATROPIUM/ALBUTEROL 0.5-3(2.5)MG/3ML NEB HHN SCH ×4 (09:14→16:43)
[2021-03-12] MEDS: DOCUSATE SODIUM SUGAR FREE 100MG/10ML UDC NG SCH (09:38)
[2021-03-12] MEDS: SUCRALFATE 1 G/10 ML UDC PO SCH ×4 (09:38→20:50)
[2021-03-12] MEDS: POLYETHYLENE GLYCOL 3350 (17GM) 1 DOSE PACK PO SCH (09:38)
[2021-03-12] MEDS: AMLODIPINE 5MG TABLET NG SCH ×2 (09:39→20:50)
[2021-03-12] MEDS: CARVEDILOL 12.5MG TABLET NG SCH ×2 (09:39→20:52)
[2021-03-12 17:27] LABS: HEMATOCRIT 29.6 % (42.0-52.0); HEMOGLOBIN 9.8 g/dL (14.0-18.0)
[2021-03-12] MEDS: ATORVASTATIN CALCIUM 40MG TABLET PO SCH (20:50)
[2021-03-12] MEDS: INSULIN GLARGINE UD 100 UNITS/ML SYR SUBCUT SCH (22:00)
[2021-03-13] VITALS (12 sets, daily range): BP systolic 92–161; BP diastolic 41–83
[2021-03-13] MEDS: METOCLOPRAMIDE HCL 10MG/2ML VIAL IV SCH ×5 (00:29→23:40)
[2021-03-13] MEDS: INSULIN LISPRO 100 UNITS/ML SUBCUT SCH ×5 (00:29→23:42)
[2021-03-13] MEDS: BLOOD SUGAR DIAGNOSTIC STRIP TEST SCH ×5 (00:29→23:42)
[2021-03-13] MEDS: PANTOPRAZOLE SODIUM 40 MG/VIAL IV SCH ×2 (05:36→17:56)
[2021-03-13] MEDS: NITROGLYCERIN OINT 1GM/INCH UDPKT TD SCH ×3 (05:42→21:05)
[2021-03-13] MEDS: HYDRALAZINE HCL 50MG TABLET PO SCH ×3 (05:43→21:05)
[2021-03-13 08:40] LABS: BASOPHILS % 0.2 % (0.0-2.0); EOSINOPHILS % 1.7 % (0.0-5.0); HEMATOCRIT. 28.8 % (42.0-52.0); HEMOGLOBIN. 9.6 g/dL (14.0-18.0); LYMPHOCYTES % 10.6 % (20.0-50.0); MEAN CORPUSCULAR HEMOGLOBIN 33.7 pg (28.0-32.0); MEAN CORPUSCULAR VOLUME 101.1 fL (80.0-94.0); MEAN PLATELET VOLUME 11.4 fl (7.4-10.4); MONOCYTES % 11.4 % (2.0-8.0); NEUTROPHILS % 76.1 % (40.0-76.0); PLATELET 222 x1000/uL (130-400); RED BLOOD CELL COUNT 2.85 mill/uL (4.7-6.1)
[2021-03-13 08:48] LABS: CHLORIDE 113 mEq/L (98-107)
[2021-03-13] MEDS: IPRATROPIUM/ALBUTEROL 0.5-3(2.5)MG/3ML NEB HHN SCH ×3 (09:15→21:28)
[2021-03-13] MEDS: POLYETHYLENE GLYCOL 3350 (17GM) 1 DOSE PACK PO SCH (10:25)
[2021-03-13] MEDS: DOCUSATE SODIUM SUGAR FREE 100MG/10ML UDC NG SCH (10:25)
[2021-03-13] MEDS: SUCRALFATE 1 G/10 ML UDC PO SCH ×4 (10:25→21:05)
[2021-03-13] MEDS: CARVEDILOL 12.5MG TABLET NG SCH ×2 (10:26→21:04)
[2021-03-13] MEDS: AMLODIPINE 5MG TABLET NG SCH ×2 (10:26→21:16)
[2021-03-13] MEDS: INSULIN GLARGINE UD 100 UNITS/ML SYR SUBCUT SCH ×2 (10:27→21:06)
[2021-03-13] MEDS: DEXTROSE 5% WATER 1,000 ML IV SCH (17:23)
[2021-03-13] MEDS: ATORVASTATIN CALCIUM 40MG TABLET PO SCH (21:05)
[2021-03-14] VITALS (12 sets, daily range): BP systolic 94–137; BP diastolic 41–79
[2021-03-14] MEDS: IPRATROPIUM/ALBUTEROL 0.5-3(2.5)MG/3ML NEB HHN SCH ×6 (01:20→21:03)
[2021-03-14] MEDS: METOCLOPRAMIDE HCL 10MG/2ML VIAL IV SCH ×3 (05:24→18:00)
[2021-03-14] MEDS: PANTOPRAZOLE SODIUM 40 MG/VIAL IV SCH ×3 (05:24→21:05)
[2021-03-14] MEDS: NITROGLYCERIN OINT 1GM/INCH UDPKT TD SCH ×3 (05:25→21:01)
[2021-03-14] MEDS: HYDRALAZINE HCL 50MG TABLET PO SCH ×3 (05:25→21:01)
[2021-03-14] MEDS: INSULIN LISPRO 100 UNITS/ML SUBCUT SCH ×3 (05:26→18:01)
[2021-03-14] MEDS: BLOOD SUGAR DIAGNOSTIC STRIP TEST SCH ×3 (05:26→18:00)
[2021-03-14] MEDS: FUROSEMIDE 40MG TABLET PO SCH (08:13)
[2021-03-14] MEDS: POLYETHYLENE GLYCOL 3350 (17GM) 1 DOSE PACK PO SCH (08:13)
[2021-03-14] MEDS: SUCRALFATE 1 G/10 ML UDC PO SCH ×4 (08:13→21:01)
[2021-03-14] MEDS: DOCUSATE SODIUM SUGAR FREE 100MG/10ML UDC NG SCH (08:13)
[2021-03-14] MEDS: AMLODIPINE 5MG TABLET NG SCH ×2 (08:16→21:05)
[2021-03-14] MEDS: CARVEDILOL 12.5MG TABLET NG SCH ×2 (08:17→21:00)
[2021-03-14] MEDS: INSULIN GLARGINE UD 100 UNITS/ML SYR SUBCUT SCH ×2 (10:41→21:08)
[2021-03-14] MEDS: DEXTROSE 5% WATER 1,000 ML IV SCH (12:59)
[2021-03-14 17:19] LABS: BG BASE EXCESS 7.5 mmol/L (-2.0-2.0); BG CARBOXYHEMOGLOBIN 0.3 % (0.5-1.5); BG DEOXYHEMOGLOBIN 8.2 % (0.0-5.0); BG FRACTION INSPIRED OXYGEN 21; BG HCO3 ACT 30.6 mmol/L (22.0-26.0); BG METHEMOGLOBIN 0.3 % (0.0-1.5); BG OXYGEN SATURATION 91.8 % (92.0-98.5); BG OXYHEMOGLOBIN 91.2 % (94.0-97.0); BG PCO2 37.6 mmHg (35.0-45.0); BG PH 7.529 (7.350-7.450); BG SAMPLE SITE RIGHT RADIAL; BG TOTAL HEMOGLOBIN 10.6 g/dL (12.0-18.0); BG VENT MODE ROOM AIR
[2021-03-14 20:26] LABS: BASOPHILS % 0.2 % (0.0-2.0); EOSINOPHILS % 1.4 % (0.0-5.0); HEMATOCRIT. 29.8 % (42.0-52.0); HEMOGLOBIN. 9.8 g/dL (14.0-18.0); LYMPHOCYTES % 8.9 % (20.0-50.0); MEAN CORPUSCULAR HEMOGLOBIN 32.7 pg (28.0-32.0); MEAN PLATELET VOLUME 11.5 fl (7.4-10.4); MONOCYTES % 8.9 % (2.0-8.0); NEUTROPHILS % 80.6 % (40.0-76.0); PLATELET 223 x1000/uL (130-400); RED BLOOD CELL COUNT 2.98 mill/uL (4.7-6.1); RED CELL DISTRIBUTION WIDTH 17.1 % (11.6-14.6)
[2021-03-14 20:33] LABS: CHLORIDE 109 mEq/L (98-107)
[2021-03-14] MEDS: ATORVASTATIN CALCIUM 40MG TABLET PO SCH (21:00)
[2021-03-15] VITALS (12 sets, daily range): BP systolic 101–145; BP diastolic 44–76
[2021-03-15] MEDS: BLOOD SUGAR DIAGNOSTIC STRIP TEST SCH ×4 (00:06→18:03)
[2021-03-15] MEDS: METOCLOPRAMIDE HCL 10MG/2ML VIAL IV SCH ×4 (00:25→18:47)
[2021-03-15] MEDS: INSULIN LISPRO 100 UNITS/ML SUBCUT SCH ×4 (00:29→18:00)
[2021-03-15] MEDS: ACETAMINOPHEN 325MG TABLET PO PRN (00:43)
[2021-03-15] MEDS: IPRATROPIUM/ALBUTEROL 0.5-3(2.5)MG/3ML NEB HHN SCH ×4 (00:53→16:08)
[2021-03-15] MEDS: HYDRALAZINE HCL 50MG TABLET PO SCH ×3 (05:44→22:08)
[2021-03-15] MEDS: NITROGLYCERIN OINT 1GM/INCH UDPKT TD SCH ×3 (05:45→22:08)
[2021-03-15] MEDS: PANTOPRAZOLE SODIUM 40 MG/VIAL IV SCH ×4 (05:45→21:58)
[2021-03-15 06:05] LABS: BASOPHILS % 0.4 % (0.0-2.0); EOSINOPHILS % 1.3 % (0.0-5.0); HEMOGLOBIN. 9.4 g/dL (14.0-18.0); LYMPHOCYTES % 8.4 % (20.0-50.0); MEAN CORPUSCULAR HEMOGLOBIN 33.9 pg (28.0-32.0); MEAN PLATELET VOLUME 11.6 fl (7.4-10.4); MONOCYTES % 9.8 % (2.0-8.0); NEUTROPHILS % 80.1 % (40.0-76.0); PLATELET 221 x1000/uL (130-400); RED BLOOD CELL COUNT 2.77 mill/uL (4.7-6.1)
[2021-03-15 06:44] LABS: CHLORIDE 107 mEq/L (98-107)
[2021-03-15] MEDS: SUCRALFATE 1 G/10 ML UDC PO SCH ×4 (07:25→22:07)
[2021-03-15 07:26] LABS: INR 1.3; PROTHROMBIN TIME 13.3 sec (9.6-11.0)
[2021-03-15] MEDS: DEXTROSE 5% WATER 1,000 ML IV SCH (08:30)
[2021-03-15] MEDS: FUROSEMIDE 40MG TABLET PO SCH (09:00)
[2021-03-15] MEDS: AMLODIPINE 5MG TABLET NG SCH ×2 (09:00→21:59)
[2021-03-15] MEDS: POLYETHYLENE GLYCOL 3350 (17GM) 1 DOSE PACK PO SCH (09:00)
[2021-03-15] MEDS: FOLIC ACID 1MG TABLET PO SCH (09:00)
[2021-03-15] MEDS: DOCUSATE SODIUM SUGAR FREE 100MG/10ML UDC NG SCH (09:00)
[2021-03-15] MEDS: CARVEDILOL 12.5MG TABLET NG SCH ×2 (09:00→21:59)
[2021-03-15] MEDS: INSULIN GLARGINE UD 100 UNITS/ML SYR SUBCUT SCH ×2 (09:27→22:53)
[2021-03-15] MEDS: DEXTROSE 50% WATER 50ML SYRINGE IV PRN (12:36)
[2021-03-15] MEDS ORDERED: PROPOFOL 200MG/20ML VIAL IV ONE (13:22)
[2021-03-15] MEDS ORDERED: LABETALOL 5MG/ML SYR 20 MG/4 ML SYRINGE IV PRN (13:45)
[2021-03-15] MEDS ORDERED: HYDROMORPHONE HCL/PF 2MG/ML CPJ IV PRN (13:45)
[2021-03-15] MEDS ORDERED: MEPERIDINE HCL/PF 25MG/ML CPJ IV PRN (13:45)
[2021-03-15] MEDS ORDERED: ONDANSETRON HCL 4MG/2ML INJ IV PRN (13:45)
[2021-03-15] MEDS ORDERED: IPRATROPIUM/ALBUTEROL 0.5-3(2.5)MG/3ML NEB HHN PRN (16:45)
[2021-03-15] MEDS: ATORVASTATIN CALCIUM 40MG TABLET PO SCH (21:58)
[2021-03-16] VITALS (12 sets, daily range): BP systolic 104–136; BP diastolic 5–66
[2021-03-16] MEDS: IPRATROPIUM/ALBUTEROL 0.5-3(2.5)MG/3ML NEB HHN SCH ×3 (00:22→16:23)
[2021-03-16] MEDS: METOCLOPRAMIDE HCL 10MG/2ML VIAL IV SCH ×4 (00:32→17:30)
[2021-03-16] MEDS: BLOOD SUGAR DIAGNOSTIC STRIP TEST SCH ×4 (00:33→17:39)
[2021-03-16] MEDS: HYDRALAZINE HCL 50MG TABLET PO SCH ×3 (06:00→22:01)
[2021-03-16] MEDS: INSULIN LISPRO 100 UNITS/ML SUBCUT SCH ×4 (06:00→17:42)
[2021-03-16] MEDS: NITROGLYCERIN OINT 1GM/INCH UDPKT TD SCH ×2 (06:15→22:00)
[2021-03-16 06:39] LABS: HEMATOCRIT. 26.2 % (42.0-52.0); HEMOGLOBIN. 8.9 g/dL (14.0-18.0); MEAN CORPUSCULAR HEMOGLOBIN 33.9 pg (28.0-32.0); MEAN CORPUSCULAR VOLUME 100.1 fL (80.0-94.0); MEAN PLATELET VOLUME 11.3 fl (7.4-10.4); PLATELET 196 x1000/uL (130-400); RED BLOOD CELL COUNT 2.62 mill/uL (4.7-6.1)
[2021-03-16 07:18] LABS: CHLORIDE 107 mEq/L (98-107)
[2021-03-16] MEDS: AMLODIPINE 5MG TABLET NG SCH ×2 (08:48→22:00)
[2021-03-16] MEDS: SUCRALFATE 1 G/10 ML UDC PO SCH ×4 (08:48→22:01)
[2021-03-16] MEDS: CARVEDILOL 12.5MG TABLET NG SCH ×3 (08:48→22:03)
[2021-03-16] MEDS: PANTOPRAZOLE SODIUM 40 MG/VIAL IV SCH ×2 (08:48→22:00)
[2021-03-16] MEDS: DOCUSATE SODIUM SUGAR FREE 100MG/10ML UDC NG SCH (08:48)
[2021-03-16] MEDS: FUROSEMIDE 40MG TABLET PO SCH (08:48)
[2021-03-16] MEDS: ACETAMINOPHEN 325MG TABLET PO PRN (08:49)
[2021-03-16] MEDS: FOLIC ACID 1MG TABLET PO SCH (08:49)
[2021-03-16] MEDS: POLYETHYLENE GLYCOL 3350 (17GM) 1 DOSE PACK PO SCH (08:52)
[2021-03-16] MEDS: DEXTROSE 5% WATER 1,000 ML IV SCH (08:53)
[2021-03-16] MEDS: INSULIN GLARGINE UD 100 UNITS/ML SYR SUBCUT SCH ×2 (10:16→22:02)
[2021-03-16] MEDS: ASCORBIC ACID 500 MG TABLET PO SCH (17:30)
[2021-03-16] MEDS: FERROUS SULFATE 325MG TABLET PO SCH (17:30)
[2021-03-16 20:43] LABS: PLATELET ESTIMATE NORMAL
[2021-03-16] MEDS: ATORVASTATIN CALCIUM 40MG TABLET PO SCH (21:59)
[2021-03-16] MEDS: CARVEDILOL 3.125 MG TABLET PO SCH (22:10)
[2021-03-17] VITALS (12 sets, daily range): BP systolic 104–140; BP diastolic 46–78
[2021-03-17] MEDS: BLOOD SUGAR DIAGNOSTIC STRIP TEST SCH ×4 (00:02→17:47)
[2021-03-17] MEDS: METOCLOPRAMIDE HCL 10MG/2ML VIAL IV SCH ×4 (00:03→17:47)
[2021-03-17 05:45] LABS: CHLORIDE 106 mEq/L (98-107)
[2021-03-17] MEDS: HYDRALAZINE HCL 50MG TABLET PO SCH ×3 (05:59→21:36)
[2021-03-17] MEDS: DEXTROSE 50% WATER 50ML SYRINGE IV PRN ×3 (05:59→22:04)
[2021-03-17] MEDS: INSULIN LISPRO 100 UNITS/ML SUBCUT SCH ×4 (06:00→17:47)
[2021-03-17 07:06] LABS: HEMATOCRIT. 25.8 % (42.0-52.0); HEMOGLOBIN. 8.7 g/dL (14.0-18.0); MEAN CORPUSCULAR HEMOGLOBIN 33.8 pg (28.0-32.0); MEAN CORPUSCULAR VOLUME 99.5 fL (80.0-94.0); MEAN PLATELET VOLUME 11.5 fl (7.4-10.4); PLATELET 171 x1000/uL (130-400); RED BLOOD CELL COUNT 2.59 mill/uL (4.7-6.1); RED CELL DISTRIBUTION WIDTH 17.2 % (11.6-14.6)
[2021-03-17] MEDS: DEXTROSE 5% WATER 1,000 ML IV SCH ×2 (07:10→21:36)
[2021-03-17] MEDS: POLYETHYLENE GLYCOL 3350 (17GM) 1 DOSE PACK PO SCH (08:51)
[2021-03-17] MEDS: SUCRALFATE 1 G/10 ML UDC PO SCH ×4 (08:52→21:34)
[2021-03-17] MEDS: ASCORBIC ACID 500 MG TABLET PO SCH ×2 (08:52→17:48)
[2021-03-17] MEDS: FUROSEMIDE 40MG TABLET PO SCH (08:54)
[2021-03-17] MEDS: FERROUS SULFATE 325MG TABLET PO SCH ×3 (08:54→17:48)
[2021-03-17] MEDS: CARVEDILOL 12.5MG TABLET NG SCH (08:54)
[2021-03-17] MEDS: AMLODIPINE 5MG TABLET NG SCH ×2 (08:54→21:35)
[2021-03-17] MEDS: NITROGLYCERIN OINT 1GM/INCH UDPKT TD SCH ×2 (08:54→21:34)
[2021-03-17] MEDS: DOCUSATE SODIUM SUGAR FREE 100MG/10ML UDC NG SCH (08:55)
[2021-03-17] MEDS: FOLIC ACID 1MG TABLET PO SCH (08:55)
[2021-03-17] MEDS: CARVEDILOL 3.125 MG TABLET PO SCH ×2 (08:55→21:35)
[2021-03-17] MEDS: IPRATROPIUM/ALBUTEROL 0.5-3(2.5)MG/3ML NEB HHN SCH ×2 (08:56→16:32)
[2021-03-17] MEDS: PANTOPRAZOLE SODIUM 40 MG/VIAL IV SCH ×2 (09:04→21:34)
[2021-03-17] MEDS: INSULIN GLARGINE UD 100 UNITS/ML SYR SUBCUT SCH ×2 (11:08→22:00)
[2021-03-17 18:04] LABS: PLATELET ESTIMATE NORMAL
[2021-03-17] MEDS: ATORVASTATIN CALCIUM 40MG TABLET PO SCH (21:35)
[2021-03-17 23:40] LABS: T4 FREE 1.18 ng/dL (0.76-1.46)
[2021-03-17 23:50] LABS: FOLIC ACID (FOLATE) SERUM 17.2 ng/mL (>5.38)
[2021-03-18] VITALS (12 sets, daily range): BP systolic 102–144; BP diastolic 20–68
[2021-03-18] MEDS: BLOOD SUGAR DIAGNOSTIC STRIP TEST SCH ×4 (00:02→18:24)
[2021-03-18] MEDS: METOCLOPRAMIDE HCL 10MG/2ML VIAL IV SCH ×4 (00:02→18:24)
[2021-03-18] MEDS: IPRATROPIUM/ALBUTEROL 0.5-3(2.5)MG/3ML NEB HHN SCH ×2 (01:19→16:12)
[2021-03-18] MEDS: INSULIN LISPRO 100 UNITS/ML SUBCUT SCH ×5 (06:00→18:33)
[2021-03-18] MEDS: HYDRALAZINE HCL 50MG TABLET PO SCH ×2 (06:24→13:06)
[2021-03-18 06:46] LABS: HEMATOCRIT. 26.3 % (42.0-52.0); HEMOGLOBIN. 8.8 g/dL (14.0-18.0); MEAN CORPUSCULAR HEMOGLOBIN 33.4 pg (28.0-32.0); MEAN PLATELET VOLUME 11.7 fl (7.4-10.4); PLATELET 161 x1000/uL (130-400); RED BLOOD CELL COUNT 2.63 mill/uL (4.7-6.1); RED CELL DISTRIBUTION WIDTH 16.9 % (11.6-14.6)
[2021-03-18] MEDS ORDERED: BENZONATATE 100MG CAPSULE PO PRN (09:45)
[2021-03-18] MEDS: INSULIN GLARGINE UD 100 UNITS/ML SYR SUBCUT SCH (10:00)
[2021-03-18] MEDS: SUCRALFATE 1 G/10 ML UDC PO SCH ×4 (10:55→20:34)
[2021-03-18] MEDS: PANTOPRAZOLE SODIUM 40 MG/VIAL IV SCH ×2 (10:55→20:34)
[2021-03-18] MEDS: FOLIC ACID 1MG TABLET PO SCH (10:55)
[2021-03-18] MEDS: FUROSEMIDE 40MG TABLET PO SCH (10:55)
[2021-03-18] MEDS: POLYETHYLENE GLYCOL 3350 (17GM) 1 DOSE PACK PO SCH (10:56)
[2021-03-18] MEDS: ASCORBIC ACID 500 MG TABLET PO SCH ×2 (10:56→18:24)
[2021-03-18] MEDS: DOCUSATE SODIUM SUGAR FREE 100MG/10ML UDC NG SCH (10:56)
[2021-03-18] MEDS: FERROUS SULFATE 325MG TABLET PO SCH ×3 (10:57→18:24)
[2021-03-18] MEDS: AMLODIPINE 5MG TABLET NG SCH ×2 (10:59→20:34)
[2021-03-18] MEDS: CARVEDILOL 3.125 MG TABLET PO SCH ×2 (10:59→20:35)
[2021-03-18] MEDS: NITROGLYCERIN OINT 1GM/INCH UDPKT TD SCH ×2 (10:59→20:35)
[2021-03-18] MEDS ORDERED: NA PHOS,M-B/NA PHOS,DI-BA ENEMA 118ML PR NR (15:00)
[2021-03-18 18:00] LABS: PLATELET ESTIMATE NORMAL
[2021-03-18] MEDS: GUAIFENESIN 600MG ER TABLET PO SCH (18:24)
[2021-03-18] MEDS: DEXTROSE 5% WATER 1,000 ML IV SCH (18:26)
[2021-03-18] MEDS: ATORVASTATIN CALCIUM 40MG TABLET PO SCH (20:35)
[2021-03-18] MEDS: HYDRALAZINE HCL 25MG TABLET PO SCH (21:21)
[2021-03-19] VITALS (12 sets, daily range): BP systolic 100–117; BP diastolic 50–77
[2021-03-19] MEDS: METOCLOPRAMIDE HCL 10MG/2ML VIAL IV SCH ×4 (00:13→18:35)
[2021-03-19] MEDS: GUAIFENESIN 600MG ER TABLET PO SCH ×3 (00:13→21:25)
[2021-03-19] MEDS: IPRATROPIUM/ALBUTEROL 0.5-3(2.5)MG/3ML NEB HHN SCH ×5 (00:21→20:50)
[2021-03-19] MEDS: INSULIN LISPRO 100 UNITS/ML SUBCUT SCH ×5 (00:26→18:00)
[2021-03-19] MEDS: BLOOD SUGAR DIAGNOSTIC STRIP TEST SCH ×4 (00:26→18:36)
[2021-03-19] MEDS: HYDRALAZINE HCL 25MG TABLET PO SCH ×3 (05:53→22:00)
[2021-03-19 07:45] LABS: HEMATOCRIT. 24.8 % (42.0-52.0); HEMOGLOBIN. 8.3 g/dL (14.0-18.0); MEAN CORPUSCULAR HEMOGLOBIN 33.2 pg (28.0-32.0); MEAN CORPUSCULAR VOLUME 99.3 fL (80.0-94.0); MEAN PLATELET VOLUME 11.3 fl (7.4-10.4); PLATELET 168 x1000/uL (130-400)
[2021-03-19] MEDS: SUCRALFATE 1 G/10 ML UDC PO SCH ×4 (08:19→21:24)
[2021-03-19] MEDS: FERROUS SULFATE 325MG TABLET PO SCH ×3 (08:19→18:35)
[2021-03-19] MEDS: DOCUSATE SODIUM SUGAR FREE 100MG/10ML UDC NG SCH (08:30)
[2021-03-19] MEDS: PANTOPRAZOLE SODIUM 40 MG/VIAL IV SCH ×2 (08:30→21:25)
[2021-03-19] MEDS: NITROGLYCERIN OINT 1GM/INCH UDPKT TD SCH ×2 (08:32→21:25)
[2021-03-19] MEDS: FUROSEMIDE 40MG TABLET PO SCH (08:32)
[2021-03-19] MEDS: ASCORBIC ACID 500 MG TABLET PO SCH ×2 (08:32→18:35)
[2021-03-19] MEDS: FOLIC ACID 1MG TABLET PO SCH (08:32)
[2021-03-19] MEDS: CARVEDILOL 3.125 MG TABLET PO SCH ×2 (08:32→21:26)
[2021-03-19] MEDS: AMLODIPINE 5MG TABLET NG SCH ×2 (08:33→21:27)
[2021-03-19] MEDS ORDERED: NA PHOS,M-B/NA PHOS,DI-BA ENEMA 118ML PR PRN (09:00)
[2021-03-19] MEDS: ACETYLCYSTEINE 100MG/ML 10% VIAL 4ML INH SCH ×2 (09:11→16:02)
[2021-03-19] MEDS: POLYETHYLENE GLYCOL 3350 (17GM) 1 DOSE PACK PO SCH (09:22)
[2021-03-19] MEDS ORDERED: TRAMADOL 50MG TABLET PO PRN (09:30)
[2021-03-19] MEDS: FUROSEMIDE 40MG/4ML VIAL IVP SCH (10:39)
[2021-03-19 11:17] LABS: PLATELET ESTIMATE NORMAL
[2021-03-19] MEDS ORDERED: MORPHINE SULFATE 2 MG/ML CPJ (NOT FOR IM USE) IV NR (11:45)
[2021-03-19] MEDS ORDERED: NALOXONE HCL 0.4MG/ML VIAL IV PRN (12:00)
[2021-03-19 12:37] LABS: BG BASE EXCESS 4.6 mmol/L (-2.0-2.0); BG CARBOXYHEMOGLOBIN 0.3 % (0.5-1.5); BG DEOXYHEMOGLOBIN 5.2 % (0.0-5.0); BG HCO3 ACT 30.4 mmol/L (22.0-26.0); BG METHEMOGLOBIN 0.3 % (0.0-1.5); BG OXYGEN SATURATION 94.8 % (92.0-98.5); BG OXYHEMOGLOBIN 94.2 % (94.0-97.0); BG PCO2 52.4 mmHg (35.0-45.0); BG PH 7.382 (7.350-7.450); BG PO2 78.2 mmHg (75.0-100.0); BG SAMPLE SITE LEFT RADIAL; BG VENT MODE MASK - NRB
[2021-03-19] MEDS: ATORVASTATIN CALCIUM 40MG TABLET PO SCH (21:33)
[2021-03-20] VITALS (12 sets, daily range): BP systolic 98–120; BP diastolic 45–69
[2021-03-20] MEDS: INSULIN LISPRO 100 UNITS/ML SUBCUT SCH ×4 (00:02→17:51)
[2021-03-20] MEDS: BLOOD SUGAR DIAGNOSTIC STRIP TEST SCH ×4 (00:02→17:51)
[2021-03-20] MEDS: METOCLOPRAMIDE HCL 10MG/2ML VIAL IV SCH ×4 (00:02→17:52)
[2021-03-20] MEDS: IPRATROPIUM/ALBUTEROL 0.5-3(2.5)MG/3ML NEB HHN SCH ×6 (00:18→20:18)
[2021-03-20] MEDS: ACETYLCYSTEINE 100MG/ML 10% VIAL 4ML INH SCH ×3 (00:23→16:22)
[2021-03-20] MEDS: MORPHINE SULFATE 2 MG/ML CPJ (NOT FOR IM USE) IV PRN ×4 (00:28→20:53)
[2021-03-20] MEDS: HYDRALAZINE HCL 25MG TABLET PO SCH ×3 (05:29→22:00)
[2021-03-20 07:12] LABS: HEMATOCRIT. 24.6 % (42.0-52.0); HEMOGLOBIN. 8.7 g/dL (14.0-18.0); MEAN CORPUSCULAR HEMOGLOBIN 34.7 pg (28.0-32.0); MEAN CORPUSCULAR VOLUME 98.9 fL (80.0-94.0); MEAN PLATELET VOLUME 11.4 fl (7.4-10.4); PLATELET 162 x1000/uL (130-400); RED BLOOD CELL COUNT 2.49 mill/uL (4.7-6.1); RED CELL DISTRIBUTION WIDTH 17.1 % (11.6-14.6)
[2021-03-20] MEDS: DOCUSATE SODIUM SUGAR FREE 100MG/10ML UDC NG SCH (08:41)
[2021-03-20] MEDS: FUROSEMIDE 40MG/4ML VIAL IVP SCH (08:41)
[2021-03-20] MEDS: GUAIFENESIN 600MG ER TABLET PO SCH ×2 (08:41→20:54)
[2021-03-20] MEDS: SUCRALFATE 1 G/10 ML UDC PO SCH ×4 (08:41→20:53)
[2021-03-20] MEDS: POLYETHYLENE GLYCOL 3350 (17GM) 1 DOSE PACK PO SCH (08:41)
[2021-03-20] MEDS: PANTOPRAZOLE SODIUM 40 MG/VIAL IV SCH ×2 (08:41→20:50)
[2021-03-20] MEDS: ASCORBIC ACID 500 MG TABLET PO SCH ×2 (08:42→17:00)
[2021-03-20] MEDS: AMLODIPINE 5MG TABLET NG SCH ×2 (08:42→20:53)
[2021-03-20] MEDS: FOLIC ACID 1MG TABLET PO SCH (08:42)
[2021-03-20] MEDS: FERROUS SULFATE 325MG TABLET PO SCH ×3 (08:42→17:11)
[2021-03-20] MEDS: NITROGLYCERIN OINT 1GM/INCH UDPKT TD SCH ×2 (08:43→20:52)
[2021-03-20] MEDS: CARVEDILOL 3.125 MG TABLET PO SCH ×2 (08:43→20:53)
[2021-03-20 14:41] LABS: PLATELET ESTIMATE NORMAL
[2021-03-20] MEDS: ATORVASTATIN CALCIUM 40MG TABLET PO SCH (20:54)
[2021-03-21] VITALS (11 sets, daily range): BP systolic 99–139; BP diastolic 44–70
[2021-03-21] MEDS: ACETYLCYSTEINE 100MG/ML 10% VIAL 4ML INH SCH ×4 (00:10→16:02)
[2021-03-21] MEDS: IPRATROPIUM/ALBUTEROL 0.5-3(2.5)MG/3ML NEB HHN SCH ×5 (00:10→16:02)
[2021-03-21] MEDS: BLOOD SUGAR DIAGNOSTIC STRIP TEST SCH ×5 (00:12→23:42)
[2021-03-21] MEDS: METOCLOPRAMIDE HCL 10MG/2ML VIAL IV SCH ×4 (00:12→17:11)
[2021-03-21] MEDS: MORPHINE SULFATE 2 MG/ML CPJ (NOT FOR IM USE) IV PRN ×2 (02:50→09:16)
[2021-03-21] MEDS: INSULIN LISPRO 100 UNITS/ML SUBCUT SCH ×5 (05:32→23:42)
[2021-03-21] MEDS: HYDRALAZINE HCL 25MG TABLET PO SCH ×3 (05:36→22:00)
[2021-03-21 07:11] LABS: HEMATOCRIT. 23.4 % (42.0-52.0); HEMOGLOBIN. 7.7 g/dL (14.0-18.0); MEAN CORPUSCULAR HEMOGLOBIN 32.7 pg (28.0-32.0); MEAN CORPUSCULAR VOLUME 99.6 fL (80.0-94.0); MEAN PLATELET VOLUME 10.7 fl (7.4-10.4); PLATELET 176 x1000/uL (130-400); RED BLOOD CELL COUNT 2.35 mill/uL (4.7-6.1); RED CELL DISTRIBUTION WIDTH 16.9 % (11.6-14.6)
[2021-03-21] MEDS: SUCRALFATE 1 G/10 ML UDC PO SCH ×4 (07:30→20:42)
[2021-03-21] MEDS: FERROUS SULFATE 325MG TABLET PO SCH ×3 (08:00→17:08)
[2021-03-21] MEDS: GUAIFENESIN 600MG ER TABLET PO SCH ×2 (08:13→21:00)
[2021-03-21] MEDS: POLYETHYLENE GLYCOL 3350 (17GM) 1 DOSE PACK PO SCH (08:13)
[2021-03-21] MEDS: FOLIC ACID 1MG TABLET PO SCH (08:13)
[2021-03-21] MEDS: CARVEDILOL 3.125 MG TABLET PO SCH ×2 (08:13→20:43)
[2021-03-21] MEDS: DOCUSATE SODIUM SUGAR FREE 100MG/10ML UDC NG SCH (08:13)
[2021-03-21] MEDS: ASCORBIC ACID 500 MG TABLET PO SCH ×2 (08:13→16:36)
[2021-03-21] MEDS: AMLODIPINE 5MG TABLET NG SCH ×2 (08:13→20:42)
[2021-03-21] MEDS: FUROSEMIDE 40MG/4ML VIAL IVP SCH (08:16)
[2021-03-21] MEDS: NITROGLYCERIN OINT 1GM/INCH UDPKT TD SCH ×2 (08:17→20:53)
[2021-03-21] MEDS: PANTOPRAZOLE SODIUM 40 MG/VIAL IV SCH ×2 (08:17→20:53)
[2021-03-21 10:14] LABS: PLATELET ESTIMATE NORMAL
[2021-03-21] MEDS: ATORVASTATIN CALCIUM 40MG TABLET PO SCH (20:44)
[2021-03-21] MEDS ORDERED: ACETAMINOPHEN 650MG SUPP PR PRN (20:45)
[2021-03-22] VITALS (12 sets, daily range): BP systolic 104–138; BP diastolic 48–80
[2021-03-22] MEDS: ACETYLCYSTEINE 100MG/ML 10% VIAL 4ML INH SCH ×5 (00:45→21:07)
[2021-03-22] MEDS: METOCLOPRAMIDE HCL 10MG/2ML VIAL IV SCH ×5 (00:46→23:10)
[2021-03-22] MEDS: IPRATROPIUM/ALBUTEROL 0.5-3(2.5)MG/3ML NEB HHN SCH ×8 (00:53→21:06)
[2021-03-22] MEDS: MORPHINE SULFATE 2 MG/ML CPJ (NOT FOR IM USE) IV PRN ×4 (01:57→18:25)
[2021-03-22] MEDS: HYDRALAZINE HCL 25MG TABLET PO SCH ×3 (05:24→22:00)
[2021-03-22] MEDS: BLOOD SUGAR DIAGNOSTIC STRIP TEST SCH ×4 (05:24→23:33)
[2021-03-22] MEDS: INSULIN LISPRO 100 UNITS/ML SUBCUT SCH ×4 (05:34→23:43)
[2021-03-22 06:52] LABS: CHLORIDE 108 mEq/L (98-107)
[2021-03-22 06:53] LABS: HEMATOCRIT. 23.8 % (42.0-52.0); HEMOGLOBIN. 7.8 g/dL (14.0-18.0); MEAN CORPUSCULAR HEMOGLOBIN 32.4 pg (28.0-32.0); MEAN CORPUSCULAR VOLUME 98.9 fL (80.0-94.0); MEAN PLATELET VOLUME 10.5 fl (7.4-10.4); PLATELET 170 x1000/uL (130-400); RED CELL DISTRIBUTION WIDTH 16.4 % (11.6-14.6)
[2021-03-22] MEDS: SUCRALFATE 1 G/10 ML UDC PO SCH ×4 (07:30→21:00)
[2021-03-22] MEDS: FERROUS SULFATE 325MG TABLET PO SCH ×3 (08:00→17:47)
[2021-03-22] MEDS: FOLIC ACID 1MG TABLET PO SCH (09:00)
[2021-03-22] MEDS: GUAIFENESIN 600MG ER TABLET PO SCH ×2 (09:00→21:00)
[2021-03-22] MEDS: CARVEDILOL 3.125 MG TABLET PO SCH ×2 (09:00→21:00)
[2021-03-22] MEDS: AMLODIPINE 5MG TABLET NG SCH ×2 (09:00→21:00)
[2021-03-22] MEDS: DOCUSATE SODIUM SUGAR FREE 100MG/10ML UDC NG SCH (09:00)
[2021-03-22] MEDS: POLYETHYLENE GLYCOL 3350 (17GM) 1 DOSE PACK PO SCH (09:00)
[2021-03-22] MEDS: ASCORBIC ACID 500 MG TABLET PO SCH ×2 (09:00→17:00)
[2021-03-22] MEDS ORDERED: AMIODARONE HCL 200 MG TABLET PO SCH (10:00)
[2021-03-22 10:55] LABS: PLATELET ESTIMATE NORMAL
[2021-03-22] MEDS: FUROSEMIDE 40MG/4ML VIAL IVP SCH (11:31)
[2021-03-22] MEDS: PANTOPRAZOLE SODIUM 40 MG/VIAL IV SCH ×2 (11:31→21:41)
[2021-03-22] MEDS: NITROGLYCERIN OINT 1GM/INCH UDPKT TD SCH ×2 (11:32→21:41)
[2021-03-22] MEDS ORDERED: AMIODARONE HCL 100 MG in DEXT 5% WATER 100 ML IV NR (12:30)
[2021-03-22] MEDS: AMIODARONE HCL 900 MG in DEXT 5% WATER 482 ML IV PRN (13:28)
[2021-03-23] VITALS (12 sets, daily range): BP systolic 104–127; BP diastolic 43–74
[2021-03-23] MEDS: IPRATROPIUM/ALBUTEROL 0.5-3(2.5)MG/3ML NEB HHN SCH ×5 (00:12→20:49)
[2021-03-23] MEDS: HYDRALAZINE HCL 25MG TABLET PO SCH ×3 (05:30→21:49)
[2021-03-23] MEDS: METOCLOPRAMIDE HCL 10MG/2ML VIAL IV SCH ×3 (05:37→17:56)
[2021-03-23] MEDS: BLOOD SUGAR DIAGNOSTIC STRIP TEST SCH ×3 (06:03→17:51)
[2021-03-23] MEDS: INSULIN LISPRO 100 UNITS/ML SUBCUT SCH ×3 (06:08→18:13)
[2021-03-23 06:54] LABS: HEMATOCRIT. 25.3 % (42.0-52.0); HEMOGLOBIN. 8.4 g/dL (14.0-18.0); MEAN CORPUSCULAR HEMOGLOBIN 32.5 pg (28.0-32.0); MEAN CORPUSCULAR VOLUME 97.9 fL (80.0-94.0); MEAN PLATELET VOLUME 10.4 fl (7.4-10.4); PLATELET 183 x1000/uL (130-400); RED BLOOD CELL COUNT 2.58 mill/uL (4.7-6.1); RED CELL DISTRIBUTION WIDTH 16.9 % (11.6-14.6)
[2021-03-23 06:55] LABS: INR 1.5; PROTHROMBIN TIME 15.3 sec (9.6-11.0)
[2021-03-23] MEDS: SUCRALFATE 1 G/10 ML UDC PO SCH ×4 (07:30→21:00)
[2021-03-23 07:35] LABS: CHLORIDE 112 mEq/L (98-107)
[2021-03-23] MEDS: FERROUS SULFATE 325MG TABLET PO SCH ×3 (08:00→17:51)
[2021-03-23] MEDS: ASCORBIC ACID 500 MG TABLET PO SCH ×2 (09:00→17:00)
[2021-03-23] MEDS: POLYETHYLENE GLYCOL 3350 (17GM) 1 DOSE PACK PO SCH (09:00)
[2021-03-23] MEDS ORDERED: CEFAZOLIN 1000MG PREMIX 50 ML IV NR (09:00)
[2021-03-23] MEDS: FOLIC ACID 1MG TABLET PO SCH (09:00)
[2021-03-23] MEDS: GUAIFENESIN 600MG ER TABLET PO SCH ×2 (09:00→21:00)
[2021-03-23] MEDS: CARVEDILOL 3.125 MG TABLET PO SCH ×2 (09:00→21:00)
[2021-03-23] MEDS: DOCUSATE SODIUM SUGAR FREE 100MG/10ML UDC NG SCH (09:00)
[2021-03-23] MEDS: AMLODIPINE 5MG TABLET NG SCH ×2 (09:00→21:00)
[2021-03-23] MEDS: PANTOPRAZOLE SODIUM 40 MG/VIAL IV SCH ×2 (10:38→21:47)
[2021-03-23] MEDS: FUROSEMIDE 40MG/4ML VIAL IVP SCH (10:38)
[2021-03-23] MEDS: NITROGLYCERIN OINT 1GM/INCH UDPKT TD SCH ×2 (10:40→21:47)
[2021-03-23 12:10] LABS: PLATELET ESTIMATE NORMAL
[2021-03-23] MEDS: DEXTROSE 5% WATER 1,000 ML IV SCH (12:58)
[2021-03-23] MEDS: ACETYLCYSTEINE 100MG/ML 10% VIAL 4ML INH SCH ×2 (13:28→20:50)
[2021-03-23] MEDS: AMIODARONE HCL 900 MG in DEXT 5% WATER 482 ML IV PRN (16:40)
[2021-03-23] MEDS: MORPHINE SULFATE 2 MG/ML CPJ (NOT FOR IM USE) IV PRN (18:30)
[2021-03-24] VITALS (12 sets, daily range): BP systolic 88–120; BP diastolic 37–79
[2021-03-24] MEDS: BLOOD SUGAR DIAGNOSTIC STRIP TEST SCH ×5 (00:14→23:26)
[2021-03-24] MEDS: METOCLOPRAMIDE HCL 10MG/2ML VIAL IV SCH ×5 (00:23→23:24)
[2021-03-24] MEDS: INSULIN LISPRO 100 UNITS/ML SUBCUT SCH ×5 (00:24→23:25)
[2021-03-24] MEDS: ACETYLCYSTEINE 100MG/ML 10% VIAL 4ML INH SCH (01:25)
[2021-03-24] MEDS: IPRATROPIUM/ALBUTEROL 0.5-3(2.5)MG/3ML NEB HHN SCH ×6 (01:25→20:35)
[2021-03-24] MEDS: HYDRALAZINE HCL 25MG TABLET PO SCH ×3 (05:37→22:00)
[2021-03-24 06:01] LABS: HEMATOCRIT. 23.6 % (42.0-52.0); HEMOGLOBIN. 8.1 g/dL (14.0-18.0); MEAN CORPUSCULAR HEMOGLOBIN 33.4 pg (28.0-32.0); MEAN CORPUSCULAR VOLUME 97.6 fL (80.0-94.0); MEAN PLATELET VOLUME 11.1 fl (7.4-10.4); PLATELET 189 x1000/uL (130-400); RED BLOOD CELL COUNT 2.42 mill/uL (4.7-6.1); RED CELL DISTRIBUTION WIDTH 17.1 % (11.6-14.6)
[2021-03-24 06:42] LABS: CHLORIDE 112 mEq/L (98-107)
[2021-03-24] MEDS: SUCRALFATE 1 G/10 ML UDC PO SCH ×4 (07:30→20:32)
[2021-03-24] MEDS: FERROUS SULFATE 325MG TABLET PO SCH ×3 (08:00→17:06)
[2021-03-24] MEDS: DOCUSATE SODIUM SUGAR FREE 100MG/10ML UDC NG SCH (08:34)
[2021-03-24] MEDS: AMLODIPINE 5MG TABLET NG SCH ×2 (08:34→20:31)
[2021-03-24] MEDS: CARVEDILOL 3.125 MG TABLET PO SCH ×2 (08:34→20:32)
[2021-03-24] MEDS: GUAIFENESIN 600MG ER TABLET PO SCH ×2 (08:35→20:32)
[2021-03-24] MEDS: FOLIC ACID 1MG TABLET PO SCH (08:35)
[2021-03-24] MEDS: ASCORBIC ACID 500 MG TABLET PO SCH ×2 (08:35→17:00)
[2021-03-24] MEDS: POLYETHYLENE GLYCOL 3350 (17GM) 1 DOSE PACK PO SCH (08:35)
[2021-03-24 08:58] LABS: BG BASE EXCESS 4.7 mmol/L (-2.0-2.0); BG CARBOXYHEMOGLOBIN 0.4 % (0.5-1.5); BG DEOXYHEMOGLOBIN 4.6 % (0.0-5.0); BG FRACTION INSPIRED OXYGEN 65; BG HCO3 ACT 29.4 mmol/L (22.0-26.0); BG METHEMOGLOBIN 0.3 % (0.0-1.5); BG OXYGEN SATURATION 95.4 % (92.0-98.5); BG OXYHEMOGLOBIN 94.7 % (94.0-97.0); BG PCO2 44.5 mmHg (35.0-45.0); BG PH 7.438 (7.350-7.450); BG SAMPLE SITE RIGHT RADIAL; BG TOTAL HEMOGLOBIN 8.8 g/dL (12.0-18.0); BG VENT MODE MASK - BIPAP
[2021-03-24] MEDS: NITROGLYCERIN OINT 1GM/INCH UDPKT TD SCH ×2 (09:00→20:06)
[2021-03-24] MEDS: FUROSEMIDE 40MG/4ML VIAL IVP SCH (10:48)
[2021-03-24] MEDS: MORPHINE SULFATE 2 MG/ML CPJ (NOT FOR IM USE) IV PRN (10:48)
[2021-03-24] MEDS: PANTOPRAZOLE SODIUM 40 MG/VIAL IV SCH ×2 (10:48→20:04)
[2021-03-24] MEDS ORDERED: AMIODARONE HCL 900 MG in DEXT 5% WATER 482 ML IV PRN (15:32)
[2021-03-24 18:35] LABS: PLATELET ESTIMATE NORMAL
[2021-03-24 22:18] LABS: CLARITY URINE CLOUDY (CLEAR); COLOR URINE DARK YELLOW (YELLOW); KETONES URINE NEGATIVE (NEGATIVE); LEUKOCYTE ESTERASE URINE 1+ (NEGATIVE); NITRITE URINE POSITIVE (NEGATIVE); OCCULT BLOOD URINE 2+ (NEGATIVE); PROTEIN URINE 1+ (NEGATIVE)
[2021-03-25] VITALS (12 sets, daily range): BP systolic 81–119; BP diastolic 39–88
[2021-03-25] MEDS: IPRATROPIUM/ALBUTEROL 0.5-3(2.5)MG/3ML NEB HHN SCH ×6 (00:34→20:43)
[2021-03-25] MEDS: DEXTROSE 5% WATER 1,000 ML IV SCH (04:41)
[2021-03-25] MEDS: BLOOD SUGAR DIAGNOSTIC STRIP TEST SCH ×4 (05:01→23:50)
[2021-03-25] MEDS: METOCLOPRAMIDE HCL 10MG/2ML VIAL IV SCH ×4 (05:10→23:50)
[2021-03-25] MEDS: HYDRALAZINE HCL 25MG TABLET PO SCH ×2 (05:10→14:00)
[2021-03-25] MEDS: INSULIN LISPRO 100 UNITS/ML SUBCUT SCH ×4 (05:12→23:58)
[2021-03-25] MEDS: SUCRALFATE 1 G/10 ML UDC PO SCH ×4 (07:30→20:18)
[2021-03-25] MEDS: POLYETHYLENE GLYCOL 3350 (17GM) 1 DOSE PACK PO SCH (07:46)
[2021-03-25] MEDS: DOCUSATE SODIUM SUGAR FREE 100MG/10ML UDC NG SCH (07:46)
[2021-03-25] MEDS: FERROUS SULFATE 325MG TABLET PO SCH ×3 (07:46→17:10)
[2021-03-25] MEDS: CARVEDILOL 3.125 MG TABLET PO SCH (07:46)
[2021-03-25] MEDS: FOLIC ACID 1MG TABLET PO SCH (07:46)
[2021-03-25] MEDS: AMLODIPINE 5MG TABLET NG SCH (07:46)
[2021-03-25] MEDS: ASCORBIC ACID 500 MG TABLET PO SCH ×2 (07:47→17:00)
[2021-03-25] MEDS: GUAIFENESIN 600MG ER TABLET PO SCH ×2 (07:47→20:18)
[2021-03-25] MEDS: FUROSEMIDE 40MG/4ML VIAL IVP SCH (08:25)
[2021-03-25] MEDS: PANTOPRAZOLE SODIUM 40 MG/VIAL IV SCH ×2 (08:25→21:04)
[2021-03-25] MEDS: NITROGLYCERIN OINT 1GM/INCH UDPKT TD SCH (08:26)
[2021-03-25] MEDS ORDERED: MORPHINE SULFATE 2 MG/ML CPJ (NOT FOR IM USE) IV NR (14:45)
[2021-03-25] MEDS ORDERED: METRONIDAZOLE 500 MG PREMIX 100 ML IV SCH (15:15)
[2021-03-25] MEDS: METRONIDAZOLE 500MG TABLET PO SCH ×2 (15:30→21:04)
[2021-03-25] MEDS ORDERED: LEVOFLOXACIN 500MG PREMIX 100 ML IV SCH (17:00)
[2021-03-26] VITALS (10 sets, daily range): BP systolic 91–110; BP diastolic 40–69
[2021-03-26] MEDS: DEXTROSE 5% WATER 1,000 ML IV SCH (00:01)
[2021-03-26] MEDS: IPRATROPIUM/ALBUTEROL 0.5-3(2.5)MG/3ML NEB HHN SCH ×3 (01:04→08:28)
[2021-03-26] MEDS: METRONIDAZOLE 500MG TABLET PO SCH (05:12)
[2021-03-26] MEDS: BLOOD SUGAR DIAGNOSTIC STRIP TEST SCH (05:12)
[2021-03-26] MEDS: METOCLOPRAMIDE HCL 10MG/2ML VIAL IV SCH (05:17)
[2021-03-26] MEDS: INSULIN LISPRO 100 UNITS/ML SUBCUT SCH (05:18)
[2021-03-26 06:34] LABS: HEMATOCRIT. 22.1 % (42.0-52.0); HEMOGLOBIN. 7.6 g/dL (14.0-18.0); MEAN CORPUSCULAR HEMOGLOBIN 33.1 pg (28.0-32.0); MEAN CORPUSCULAR VOLUME 96.2 fL (80.0-94.0); MEAN PLATELET VOLUME 10.4 fl (7.4-10.4); PLATELET 139 x1000/uL (130-400); RED BLOOD CELL COUNT 2.29 mill/uL (4.7-6.1); RED CELL DISTRIBUTION WIDTH 17.2 % (11.6-14.6)
[2021-03-26] MEDS: SUCRALFATE 1 G/10 ML UDC PO SCH (07:30)
[2021-03-26] MEDS: FERROUS SULFATE 325MG TABLET PO SCH (08:00)
[2021-03-26] MEDS ORDERED: LORAZEPAM 2MG/ML CPJ IV PRN ×2 (08:00→10:45)
[2021-03-26] MEDS: GUAIFENESIN 600MG ER TABLET PO SCH (08:07)
[2021-03-26] MEDS: FOLIC ACID 1MG TABLET PO SCH (08:07)
[2021-03-26] MEDS: POLYETHYLENE GLYCOL 3350 (17GM) 1 DOSE PACK PO SCH (08:07)
[2021-03-26] MEDS: ASCORBIC ACID 500 MG TABLET PO SCH (08:07)
[2021-03-26] MEDS: DOCUSATE SODIUM SUGAR FREE 100MG/10ML UDC NG SCH (08:08)
[2021-03-26] MEDS: PANTOPRAZOLE SODIUM 40 MG/VIAL IV SCH (08:20)
[2021-03-26 09:03] LABS: NUCLEATED RED BLOOD CELLS 1 /100 WBC; PLATELET ESTIMATE NORMAL
[2021-03-26] MEDS ORDERED: VANCOMYCIN 1500MG in DEXTROSE 5% WATER 250ML IV SCH (10:30)
[2021-03-26] MEDS ORDERED: MORPHINE SULFATE 2 MG/ML CPJ (NOT FOR IM USE) IV PRN ×2 (10:45→11:00)
[2021-03-26] MEDS ORDERED: LORAZEPAM 2MG/ML CPJ IM PRN (11:00)
[2021-03-26] MEDS ORDERED: NALOXONE HCL 0.4MG/ML VIAL IV PRN (11:15)
[2021-03-26] MEDS ORDERED: MORPHINE SULFATE 2 MG/ML CPJ (NOT FOR IM USE) IV SCH (13:15)
[2021-03-27] MEDS ORDERED: VANCOMYCIN 1 G PREMIX 200 ML IV SCH (11:00)
== END 2021-03-26 17:59 | DRG 870 ==
LOC: ER 21:12 → MICUSO 02-26 02:14 → 5EST 03-09 11:27
PROVIDERS: ADMIT Internal Medicine; ATTEND Internal Medicine
PROC: 5A1955Z Respiratory Ventilation, Greater than 96 Consecutive Hours (ICD-10-PCS; principal; 2021-02-26)
PROC: 0BH17EZ Insertion of Endotracheal Airway into Trachea, Via Natural or Artificial Opening (ICD-10-PCS; 2021-02-26)
PROC: 02HV33Z Insertion of Infusion Device into Superior Vena Cava, Percutaneous Approach (ICD-10-PCS; 2021-02-27)
PROC: B548ZZA Ultrasonography of Superior Vena Cava, Guidance (ICD-10-PCS; 2021-02-27)
PROC: 30233N1 Transfusion of Nonautologous Red Blood Cells into Peripheral Vein, Percutaneous Approach (ICD-10-PCS; 2021-03-01)
PROC: 0DB58ZX Excision of Esophagus, Via Natural or Artificial Opening Endoscopic, Diagnostic (ICD-10-PCS; 2021-03-15)
PROC: 0DB68ZX Excision of Stomach, Via Natural or Artificial Opening Endoscopic, Diagnostic (ICD-10-PCS; 2021-03-15)
PROC: 5A09357 Assistance with Respiratory Ventilation, Less than 24 Consecutive Hours, Continuous Positive Airway Pressure (ICD-10-PCS; 2021-03-20)
PROC: 5A09457 Assistance with Respiratory Ventilation, 24-96 Consecutive Hours, Continuous Positive Airway Pressure (ICD-10-PCS; 2021-03-21)
PROC: 5A0935A Assistance with Respiratory Ventilation, Less than 24 Consecutive Hours, High Flow/Velocity Cannula (ICD-10-PCS; 2021-03-24)
DX: A41.9 Sepsis, unspecified organism (principal); J96.01 Acute respiratory failure with hypoxia; I21.4 Non-ST elevation (NSTEMI) myocardial infarction; I50.23 Acute on chronic systolic (congestive) heart failure; J18.9 Pneumonia, unspecified organism; N17.0 Acute kidney failure with tubular necrosis; G82.50 Quadriplegia, unspecified; G92.8 Other toxic encephalopathy; K22.11 Ulcer of esophagus with bleeding; K29.61 Other gastritis with bleeding; E87.4 Mixed disorder of acid-base balance; J44.0 Chronic obstructive pulmonary disease with (acute) lower respiratory infection; E46 Unspecified protein-calorie malnutrition; E87.0 Hyperosmolality and hypernatremia; G62.81 Critical illness polyneuropathy; I47.2 Ventricular tachycardia; K56.49 Other impaction of intestine; R64 Cachexia; I11.0 Hypertensive heart disease with heart failure; I25.5 Ischemic cardiomyopathy; E78.5 Hyperlipidemia, unspecified; I49.5 Sick sinus syndrome; I25.10 Atherosclerotic heart disease of native coronary artery without angina pectoris; D53.9 Nutritional anemia, unspecified; D69.6 Thrombocytopenia, unspecified; E78.00 Pure hypercholesterolemia, unspecified; E87.6 Hypokalemia; E88.09 Other disorders of plasma-protein metabolism, not elsewhere classified; I48.91 Unspecified atrial fibrillation; I44.7 Left bundle-branch block, unspecified; D75.89 Other specified diseases of blood and blood-forming organs; E11.51 Type 2 diabetes mellitus with diabetic peripheral angiopathy without gangrene; K29.80 Duodenitis without bleeding; K44.9 Diaphragmatic hernia without obstruction or gangrene; K56.41 Fecal impaction; M17.12 Unilateral primary osteoarthritis, left knee; M25.78 Osteophyte, vertebrae; M47.816 Spondylosis without myelopathy or radiculopathy, lumbar region; M48.02 Spinal stenosis, cervical region; R13.11 Dysphagia, oral phase; M47.812 Spondylosis without myelopathy or radiculopathy, cervical region; M48.061 Spinal stenosis, lumbar region without neurogenic claudication; R62.7 Adult failure to thrive; Z20.822 Contact with and (suspected) exposure to COVID-19; Z66 Do not resuscitate; Z95.5 Presence of coronary angioplasty implant and graft; I25.2 Old myocardial infarction; Z95.0 Presence of cardiac pacemaker; Z51.5 Encounter for palliative care; Z79.02 Long term (current) use of antithrombotics/antiplatelets; Z79.4 Long term (current) use of insulin; Z79.899 Other long term (current) drug therapy; Z82.49 Family history of ischemic heart disease and other diseases of the circulatory system; Z87.19 Personal history of other diseases of the digestive system; Z87.891 Personal history of nicotine dependence; Z88.0 Allergy status to penicillin; Z56.0 Unemployment, unspecified; Z68.26 Body mass index [BMI] 26.0-26.9, adult; R53.81 Other malaise
CPT/HCPCS: 31500; 36415; 36600; 71045; 72128; 72131; 76700; 76937; 80048; 80053; 80305; 80320; 81003; 82140; 82270; 82375; 82607; 82728; 82746; 82805; 82962; 83036; 83540; 83550; 83605; 83735; 83880; 84100; 84132; 84145; 84439; 84443; 84478; 84481; 84484; 85014; 85018; 85025; 85044; 86850; 86900; 86920; 87070; 87077; 87186; 87426; 87804; 88305; 88312; 88313; 92523; 92610; 93005; 93306; 93923; 94002; 94003; 94640; 94660; 94667; 97110; 97162; 97166; 97530; 97535; 99291; A6261; C1725; C9113; J0282; J0330; J0690; J0692; J1650; J1815; J1940; J1956; J2060; J2250; J2270; J2704; J2765; J3010; J3370; J3480; J3490; J7040; J7042; J7050; J7060; J7070; J7608; P9016; A4315; G0480